=== PATIENT | female | born 1935 | race Caucasian/White ===

== ENCOUNTER → 2017-09-11 | Outpatient (CLI) | payer OTHER ==
[~2017-09-11] MED LIST: FLEXERIL10 MG PO; METFORMIN; METFORMIN500 MG PO; QUINAPRIL; QUINAPRIL40 MG PO; SYNTHROID25 MCG PO; THYROID PILL; TRAMADOL HCL50 MG PO; ULTRAM50 MG PO
[2017-09-11 07:40] LABS: BASO % 0.2 % (0.0-1.0); EOS # 0.2 10*3/uL (0.0-0.4); EOS % 4.2 % (1.0-4.0); HEMATOCRIT 36.8 % (37.0-47.0); HEMOGLOBIN 11.6 g/dl (12.0-16.0); MEAN CORPUSCULAR HGB CONC 31.5 g/dl (33.0-37.0); MEAN PLATELET VOLUME 10.8 fl (9.6-12.3); MONO # 0.5 10*3/uL (0.1-1.0); MONO % 9.1 % (3.0-9.0); NEUT # 2.5 10*3/uL (2.3-7.9); NEUT % 48.3 % (47.0-73.0); PLATELET COUNT AUTOMATED 202 10*3/uL (130-400); RED CELL DISTRI WIDTH 14.5 % (0-14.5); WHITE BLOOD COUNT 5.3 10*3/uL (4.8-10.8)
[2017-09-11 08:05] LABS: ALBUMIN 3.8 gm/dl (3.1-4.5); ALKALINE PHOSPHATASE 88 U/L (45-117); BUN 17 mg/dl (7-24); CHLORIDE 104 mmol/L (98-107); CHOLESTEROL 190 mg/dL (<200); CREATININE 0.88 mg/dL (0.55-1.02); FREE T4 1.18 ng/dl (0.76-1.46); HDL CHOLESTEROL 46 mg/dl (40-60); LDL CHOLESTEROL 125 mg/dL (9-159); POTASSIUM 3.9 mmol/L (3.5-5.1); SGOT/AST 27 IU/L (3-35); SGPT/ALT 25 U/L (12-78); SODIUM 141 mmol/L (136-145); TOTAL PROTEIN 7.4 gm/dL (6.4-8.2); TRIGLYCERIDES 93 mg/dl (<150); VLDL CHOLESTEROL 19 mg/dL (6-40)
== END | disposition home or self-care (01) ==
LOC: LAB 07:13
PROVIDERS: Internal Medicine
DX: E78.00 Pure hypercholesterolemia, unspecified (principal); E03.9 Hypothyroidism, unspecified; E11.42 Type 2 diabetes mellitus with diabetic polyneuropathy

== ENCOUNTER → 2019-04-25 | Outpatient (CLI) | payer OTHER ==
[2019-04-25 11:02] LABS: HEMATOCRIT 38.6 % (37.0-47.0); HEMOGLOBIN 12.3 g/dl (12.0-16.0); MEAN CELL VOLUME 94.1 fl (81.0-99.0); MEAN CORPUSCULAR HGB CONC 31.9 g/dl (33.0-37.0); MEAN PLATELET VOLUME 10.5 fl (9.6-12.3); RED BLOOD COUNT 4.1 10*6/uL (4.10-5.10); RED CELL DISTRI WIDTH 13.8 % (0-14.5)
[2019-04-25 11:35] LABS: ALBUMIN 3.8 gm/dl (3.1-4.5); ALKALINE PHOSPHATASE 67 U/L (45-117); BUN 13 mg/dl (7-24); CHLORIDE 105 mmol/L (98-107); CHOLESTEROL 145 mg/dL (<200); CREATININE 0.94 mg/dL (0.55-1.02); HDL CHOLESTEROL 58 mg/dl (40-60); LDL CHOLESTEROL 67 mg/dL (9-159); POTASSIUM 4.5 mmol/L (3.5-5.1); SGOT/AST 20 IU/L (3-35); SGPT/ALT 16 U/L (12-78); SODIUM 140 mmol/L (136-145); TRIGLYCERIDES 99 mg/dl (<150); VLDL CHOLESTEROL 20 mg/dL (6-40)
== END | disposition home or self-care (01) ==
LOC: LAB 10:31
PROVIDERS: Internal Medicine
DX: E11.42 Type 2 diabetes mellitus with diabetic polyneuropathy (principal); E55.9 Vitamin D deficiency, unspecified; I10 Essential (primary) hypertension; E78.00 Pure hypercholesterolemia, unspecified; E03.9 Hypothyroidism, unspecified

== ENCOUNTER → 2020-07-06 | Outpatient (CLI) | payer OTHER | END | disposition home or self-care (01) | LOC: US 14:00 | PROVIDERS: ATTEND Physician Assistant | DX: R22.1 Localized swelling, mass and lump, neck (principal); J90 Pleural effusion, not elsewhere classified; J98.11 Atelectasis ==

== ENCOUNTER → 2020-07-23 | Outpatient (CLI) | payer OTHER ==
[2020-07-23 10:06] LABS: CREATININE 0.88 mg/dL (0.55-1.02)
== END | disposition home or self-care (01) ==
LOC: LAB 09:38 → CT 10:00
PROVIDERS: Radiology Diagnostic Radiology; ATTEND Physician Assistant
DX: J98.11 Atelectasis (principal); C78.02 Secondary malignant neoplasm of left lung; C78.01 Secondary malignant neoplasm of right lung; K44.9 Diaphragmatic hernia without obstruction or gangrene; I25.10 Atherosclerotic heart disease of native coronary artery without angina pectoris; R59.9 Enlarged lymph nodes, unspecified; J90 Pleural effusion, not elsewhere classified; R91.8 Other nonspecific abnormal finding of lung field; Z90.49 Acquired absence of other specified parts of digestive tract

== ENCOUNTER → 2020-09-24 | Outpatient (CLI) | payer OTHER | END | disposition home or self-care (01) | LOC: MAMMO 07:37 | PROVIDERS: ATTEND Internal Medicine Hematology & Oncology | DX: C50.212 Malignant neoplasm of upper-inner quadrant of left female breast (principal); Z98.890 Other specified postprocedural states ==

== ENCOUNTER → 2022-02-01 | Outpatient (CLI) | payer OTHER ==
[~2022-02-01] MED LIST changes: +ANASTROZOLE1 M1 PO; +AUGMENTIN 500500 M1 PO; +IBRANCE75 MG PO; +LEVOFLOXACIN750 M2 PO
== END | disposition home or self-care (01) ==
LOC: WOUNDCARE 01:55
PROVIDERS: ATTEND Surgery
DX: S81.801A Unspecified open wound, right lower leg, initial encounter (principal); E11.622 Type 2 diabetes mellitus with other skin ulcer; I87.311 Chronic venous hypertension (idiopathic) with ulcer of right lower extremity; L97.812 Non-pressure chronic ulcer of other part of right lower leg with fat layer exposed; E03.9 Hypothyroidism, unspecified; I10 Essential (primary) hypertension; Z98.42 Cataract extraction status, left eye; Z85.3 Personal history of malignant neoplasm of breast; Z79.84 Long term (current) use of oral hypoglycemic drugs; X58.XXXA Exposure to other specified factors, initial encounter; Y93.89 Activity, other specified; Y92.89 Other specified places as the place of occurrence of the external cause; Y99.8 Other external cause status

== ENCOUNTER → 2022-02-08 | Outpatient (CLI) | payer OTHER | END | disposition home or self-care (01) | LOC: WOUNDCARE 03:01 | PROVIDERS: ATTEND Surgery | DX: S81.801D Unspecified open wound, right lower leg, subsequent encounter (principal); I83.212 Varicose veins of right lower extremity with both ulcer of calf and inflammation; L97.213 Non-pressure chronic ulcer of right calf with necrosis of muscle; E03.9 Hypothyroidism, unspecified; I10 Essential (primary) hypertension; Z98.42 Cataract extraction status, left eye; Z85.3 Personal history of malignant neoplasm of breast; X58.XXXD Exposure to other specified factors, subsequent encounter ==

== ENCOUNTER → 2022-02-15 | Outpatient (CLI) | payer OTHER | END | disposition home or self-care (01) | LOC: WOUNDCARE 01:06 | PROVIDERS: ATTEND Surgery | DX: I83.212 Varicose veins of right lower extremity with both ulcer of calf and inflammation (principal); E11.622 Type 2 diabetes mellitus with other skin ulcer; L97.213 Non-pressure chronic ulcer of right calf with necrosis of muscle; S81.801D Unspecified open wound, right lower leg, subsequent encounter; E03.9 Hypothyroidism, unspecified; Z98.42 Cataract extraction status, left eye; Z85.3 Personal history of malignant neoplasm of breast; X58.XXXD Exposure to other specified factors, subsequent encounter ==

== ENCOUNTER → 2022-02-22 | Outpatient (CLI) | payer OTHER | END | disposition home or self-care (01) | LOC: WOUNDCARE 03:57 | PROVIDERS: ATTEND Surgery | DX: S81.801D Unspecified open wound, right lower leg, subsequent encounter (principal); E11.622 Type 2 diabetes mellitus with other skin ulcer; L97.812 Non-pressure chronic ulcer of other part of right lower leg with fat layer exposed; I83.212 Varicose veins of right lower extremity with both ulcer of calf and inflammation; L97.213 Non-pressure chronic ulcer of right calf with necrosis of muscle; E03.9 Hypothyroidism, unspecified; Z98.42 Cataract extraction status, left eye; Z85.3 Personal history of malignant neoplasm of breast; X58.XXXD Exposure to other specified factors, subsequent encounter ==

== ENCOUNTER → 2022-03-01 | Outpatient (CLI) | payer OTHER | END | disposition home or self-care (01) | LOC: WOUNDCARE 00:42 | PROVIDERS: ATTEND Nurse Practitioner Family | DX: S81.801D Unspecified open wound, right lower leg, subsequent encounter (principal); E11.622 Type 2 diabetes mellitus with other skin ulcer; I83.212 Varicose veins of right lower extremity with both ulcer of calf and inflammation; L97.213 Non-pressure chronic ulcer of right calf with necrosis of muscle; E03.9 Hypothyroidism, unspecified; Z98.42 Cataract extraction status, left eye; Z85.3 Personal history of malignant neoplasm of breast; X58.XXXD Exposure to other specified factors, subsequent encounter ==

== ENCOUNTER → 2022-03-11 | Day surgery (SDC) | payer OTHER ==
[~2022-03-11] VITALS: Ht 167.6 cm; Wt 68.0 kg
[~2022-03-11] MED LIST changes: +FERROUS GLUCON324 MG PO; +NATURAL LUTEIN20 MG PO; +PERCOCET 5-3251 EACH PO
[2022-03-11 09:50] VITALS: BP 126/72
[2022-03-11 11:45] VITALS: BP 153/83
[2022-03-11 12:00] VITALS: BP 158/83
[2022-03-11 12:15] VITALS: BP 158/88
== END | disposition home or self-care (01) ==
LOC: SDC 03-08 11:00
PROVIDERS: ATTEND Surgery
DX: S81.801A Unspecified open wound, right lower leg, initial encounter (principal); I87.2 Venous insufficiency (chronic) (peripheral); I87.311 Chronic venous hypertension (idiopathic) with ulcer of right lower extremity; L97.312 Non-pressure chronic ulcer of right ankle with fat layer exposed; X58.XXXA Exposure to other specified factors, initial encounter; Y93.89 Activity, other specified; Y92.89 Other specified places as the place of occurrence of the external cause; Y99.8 Other external cause status

== ENCOUNTER → 2022-03-17 | Outpatient (CLI) | payer MEDICARE | END | disposition home or self-care (01) | LOC: WOUNDCARE 01:54 | PROVIDERS: ATTEND Nurse Practitioner Family | DX: S81.801D Unspecified open wound, right lower leg, subsequent encounter (principal); E11.622 Type 2 diabetes mellitus with other skin ulcer; I83.212 Varicose veins of right lower extremity with both ulcer of calf and inflammation; L97.213 Non-pressure chronic ulcer of right calf with necrosis of muscle; E03.9 Hypothyroidism, unspecified; I10 Essential (primary) hypertension; Z98.42 Cataract extraction status, left eye; Z85.3 Personal history of malignant neoplasm of breast; X58.XXXD Exposure to other specified factors, subsequent encounter ==

== ENCOUNTER → 2022-03-24 | Outpatient (CLI) | payer MEDICARE | END | disposition home or self-care (01) | LOC: WOUNDCARE 02:20 | PROVIDERS: ATTEND Nurse Practitioner Family | DX: S81.801D Unspecified open wound, right lower leg, subsequent encounter (principal); I83.212 Varicose veins of right lower extremity with both ulcer of calf and inflammation; E11.622 Type 2 diabetes mellitus with other skin ulcer; L97.213 Non-pressure chronic ulcer of right calf with necrosis of muscle; E03.9 Hypothyroidism, unspecified; I10 Essential (primary) hypertension; Z98.42 Cataract extraction status, left eye; Z85.3 Personal history of malignant neoplasm of breast; X58.XXXD Exposure to other specified factors, subsequent encounter ==

== ENCOUNTER → 2022-03-31 | Outpatient (CLI) | payer MEDICARE | LOC: WOUNDCARE 00:24 | PROVIDERS: ATTEND Nurse Practitioner Family | DX: S81.801D Unspecified open wound, right lower leg, subsequent encounter (principal); E11.622 Type 2 diabetes mellitus with other skin ulcer; I83.212 Varicose veins of right lower extremity with both ulcer of calf and inflammation; L97.213 Non-pressure chronic ulcer of right calf with necrosis of muscle; E03.9 Hypothyroidism, unspecified; I10 Essential (primary) hypertension; Z98.42 Cataract extraction status, left eye; Z85.3 Personal history of malignant neoplasm of breast; X58.XXXD Exposure to other specified factors, subsequent encounter ==

== ENCOUNTER → 2022-04-06 | Outpatient (CLI) | payer MEDICARE | END | disposition home or self-care (01) | LOC: WOUNDCARE 01:05 | PROVIDERS: ATTEND Nurse Practitioner Family | DX: I83.212 Varicose veins of right lower extremity with both ulcer of calf and inflammation (principal); E11.622 Type 2 diabetes mellitus with other skin ulcer; L97.213 Non-pressure chronic ulcer of right calf with necrosis of muscle; S81.801D Unspecified open wound, right lower leg, subsequent encounter; E03.9 Hypothyroidism, unspecified; I10 Essential (primary) hypertension; Z98.42 Cataract extraction status, left eye; Z85.3 Personal history of malignant neoplasm of breast; X58.XXXD Exposure to other specified factors, subsequent encounter ==

== ENCOUNTER → 2022-04-12 | Outpatient (CLI) | payer MEDICARE | END | disposition home or self-care (01) | LOC: WOUNDCARE 03:33 | PROVIDERS: ATTEND Nurse Practitioner Family | DX: I83.212 Varicose veins of right lower extremity with both ulcer of calf and inflammation (principal); L97.213 Non-pressure chronic ulcer of right calf with necrosis of muscle; S81.801D Unspecified open wound, right lower leg, subsequent encounter; E03.9 Hypothyroidism, unspecified; Z98.42 Cataract extraction status, left eye; Z85.3 Personal history of malignant neoplasm of breast; X58.XXXD Exposure to other specified factors, subsequent encounter ==

== ENCOUNTER → 2022-04-28 | Outpatient (CLI) | payer MEDICARE | END | disposition home or self-care (01) | LOC: WOUNDCARE 00:27 | PROVIDERS: ATTEND Nurse Practitioner Family | DX: S81.801D Unspecified open wound, right lower leg, subsequent encounter (principal); I83.212 Varicose veins of right lower extremity with both ulcer of calf and inflammation; L97.213 Non-pressure chronic ulcer of right calf with necrosis of muscle; C50.212 Malignant neoplasm of upper-inner quadrant of left female breast; D50.9 Iron deficiency anemia, unspecified; I10 Essential (primary) hypertension; E03.9 Hypothyroidism, unspecified; E11.9 Type 2 diabetes mellitus without complications; Z98.42 Cataract extraction status, left eye ==

== ENCOUNTER → 2022-05-05 | Outpatient (CLI) | payer MEDICARE | END | disposition home or self-care (01) | LOC: WOUNDCARE 00:58 | PROVIDERS: ATTEND Nurse Practitioner Family | DX: S81.801D Unspecified open wound, right lower leg, subsequent encounter (principal); E11.622 Type 2 diabetes mellitus with other skin ulcer; I83.212 Varicose veins of right lower extremity with both ulcer of calf and inflammation; L97.213 Non-pressure chronic ulcer of right calf with necrosis of muscle; E03.9 Hypothyroidism, unspecified; I10 Essential (primary) hypertension; Z85.3 Personal history of malignant neoplasm of breast; Z98.42 Cataract extraction status, left eye; X58.XXXD Exposure to other specified factors, subsequent encounter ==

== ENCOUNTER → 2022-05-10 | Outpatient (CLI) | payer MEDICARE | END | disposition home or self-care (01) | LOC: WOUNDCARE 01:55 | PROVIDERS: ATTEND Nurse Practitioner Family | DX: S81.801D Unspecified open wound, right lower leg, subsequent encounter (principal); E11.622 Type 2 diabetes mellitus with other skin ulcer; I83.212 Varicose veins of right lower extremity with both ulcer of calf and inflammation; L97.213 Non-pressure chronic ulcer of right calf with necrosis of muscle; E03.9 Hypothyroidism, unspecified; I10 Essential (primary) hypertension; Z98.42 Cataract extraction status, left eye; Z85.3 Personal history of malignant neoplasm of breast; X58.XXXD Exposure to other specified factors, subsequent encounter ==

== ENCOUNTER → 2022-05-24 | Outpatient (CLI) | payer MEDICARE | END | disposition home or self-care (01) | LOC: WOUNDCARE 03:31 | PROVIDERS: ATTEND Nurse Practitioner Family | DX: S81.801D Unspecified open wound, right lower leg, subsequent encounter (principal); E11.622 Type 2 diabetes mellitus with other skin ulcer; I83.212 Varicose veins of right lower extremity with both ulcer of calf and inflammation; L97.213 Non-pressure chronic ulcer of right calf with necrosis of muscle; E03.9 Hypothyroidism, unspecified; I10 Essential (primary) hypertension; Z98.42 Cataract extraction status, left eye; Z85.3 Personal history of malignant neoplasm of breast; X58.XXXD Exposure to other specified factors, subsequent encounter ==

== ENCOUNTER → 2022-06-01 | Outpatient (CLI) | payer MEDICARE ==
[2022-06-01 10:56] LABS: BASO % 0.7 % (0.0-1.0); EOS # 0.2 10*3/uL (0.0-0.4); EOS % 5.2 % (1.0-4.0); HEMATOCRIT 33.3 % (37.0-47.0); LYMPH # 1.3 10*3/uL (1.3-4.4); LYMPH % 31.5 % (27.0-41.0); MEAN CELL VOLUME 104.4 fl (81.0-99.0); MEAN CORPUSCULAR HGB 34.8 pg (27.0-31.0); MEAN CORPUSCULAR HGB CONC 33.3 g/dl (33.0-37.0); MEAN PLATELET VOLUME 9.7 fl (9.6-12.3); MONO # 0.3 10*3/uL (0.1-1.0); MONO % 7.7 % (3.0-9.0); NEUT # 2.2 10*3/uL (2.3-7.9); NEUT % 54.4 % (47.0-73.0); PLATELET COUNT AUTOMATED 348 10*3/uL (130-400); RED BLOOD COUNT 3.19 10*6/uL (4.10-5.10); RED CELL DISTRI WIDTH 13.7 % (0-14.5)
[2022-06-01 11:12] LABS: ALKALINE PHOSPHATASE 92 U/L (46-116); BUN 14 mg/dl (9-23); CHLORIDE 106 mmol/L (98-107); CREATININE 0.89 mg/dL (0.55-1.02); POTASSIUM 4.1 mmol/L (3.4-5.1); SODIUM 140 mmol/L (136-145); TOTAL PROTEIN 7.5 gm/dL (6.0-8.0)
[2022-06-01 11:43] LABS: SGPT/ALT 13 U/L (12-78)
== END | disposition home or self-care (01) ==
LOC: WOUNDCARE 02:53 → LAB 02:53 → WOUNDCARE 08:03
PROVIDERS: ATTEND Nurse Practitioner Family
DX: S81.801D Unspecified open wound, right lower leg, subsequent encounter (principal); E11.622 Type 2 diabetes mellitus with other skin ulcer; I83.212 Varicose veins of right lower extremity with both ulcer of calf and inflammation; L97.213 Non-pressure chronic ulcer of right calf with necrosis of muscle; E03.9 Hypothyroidism, unspecified; I10 Essential (primary) hypertension; Z98.42 Cataract extraction status, left eye; Z85.3 Personal history of malignant neoplasm of breast; X58.XXXD Exposure to other specified factors, subsequent encounter

== ENCOUNTER → 2022-06-08 | Outpatient (CLI) | payer MEDICARE | END | disposition home or self-care (01) | LOC: WOUNDCARE 03:20 | PROVIDERS: ATTEND Nurse Practitioner Family | DX: S81.801D Unspecified open wound, right lower leg, subsequent encounter (principal); I83.213 Varicose veins of right lower extremity with both ulcer of ankle and inflammation; L97.213 Non-pressure chronic ulcer of right calf with necrosis of muscle; I10 Essential (primary) hypertension; E03.9 Hypothyroidism, unspecified; Z98.42 Cataract extraction status, left eye; Z85.3 Personal history of malignant neoplasm of breast; X58.XXXD Exposure to other specified factors, subsequent encounter ==

== ENCOUNTER → 2022-06-15 | Outpatient (CLI) | payer MEDICARE | END | disposition home or self-care (01) | LOC: WOUNDCARE 04:22 | PROVIDERS: ATTEND Nurse Practitioner Family | DX: S81.801D Unspecified open wound, right lower leg, subsequent encounter (principal); E11.622 Type 2 diabetes mellitus with other skin ulcer; I83.212 Varicose veins of right lower extremity with both ulcer of calf and inflammation; L97.213 Non-pressure chronic ulcer of right calf with necrosis of muscle; E03.9 Hypothyroidism, unspecified; I10 Essential (primary) hypertension; Z98.42 Cataract extraction status, left eye; Z85.3 Personal history of malignant neoplasm of breast; X58.XXXD Exposure to other specified factors, subsequent encounter ==

== ENCOUNTER → 2022-06-22 | Outpatient (CLI) | payer MEDICARE ==
[~2022-06-22] MED LIST changes: +METFORMIN HYDR500 MG PO; +SEPTDS PO
== END ==
LOC: WOUNDCARE 04:43
PROVIDERS: ATTEND Nurse Practitioner Family
DX: I83.212 Varicose veins of right lower extremity with both ulcer of calf and inflammation (principal); E11.622 Type 2 diabetes mellitus with other skin ulcer; L97.213 Non-pressure chronic ulcer of right calf with necrosis of muscle; S81.801D Unspecified open wound, right lower leg, subsequent encounter; I10 Essential (primary) hypertension; E03.9 Hypothyroidism, unspecified; Z98.42 Cataract extraction status, left eye; Z85.3 Personal history of malignant neoplasm of breast; X58.XXXD Exposure to other specified factors, subsequent encounter

== ENCOUNTER → 2022-06-29 | Outpatient (CLI) | payer MEDICARE | END | disposition home or self-care (01) | LOC: WOUNDCARE 02:55 | PROVIDERS: ATTEND Nurse Practitioner Family | DX: I83.212 Varicose veins of right lower extremity with both ulcer of calf and inflammation (principal); E11.622 Type 2 diabetes mellitus with other skin ulcer; L97.213 Non-pressure chronic ulcer of right calf with necrosis of muscle; S81.801D Unspecified open wound, right lower leg, subsequent encounter; E03.9 Hypothyroidism, unspecified; I10 Essential (primary) hypertension; Z98.42 Cataract extraction status, left eye; Z85.3 Personal history of malignant neoplasm of breast; X58.XXXD Exposure to other specified factors, subsequent encounter ==

== ENCOUNTER → 2022-07-08 | Outpatient (CLI) | payer MEDICARE ==
[~2022-07-08] MED LIST changes: +METRONIDAZOLE500 M1 PO; +OYSTER SHELL 51 EAC4 PO; +VITAMIN B-12100 MCG PO
== END | disposition home or self-care (01) ==
LOC: WOUNDCARE 02:46
PROVIDERS: ATTEND Nurse Practitioner Family
DX: S81.801D Unspecified open wound, right lower leg, subsequent encounter (principal); E11.622 Type 2 diabetes mellitus with other skin ulcer; I83.212 Varicose veins of right lower extremity with both ulcer of calf and inflammation; L97.213 Non-pressure chronic ulcer of right calf with necrosis of muscle; E03.9 Hypothyroidism, unspecified; I10 Essential (primary) hypertension; Z98.42 Cataract extraction status, left eye; Z85.3 Personal history of malignant neoplasm of breast; X58.XXXD Exposure to other specified factors, subsequent encounter

== ENCOUNTER → 2022-07-29 | Outpatient (CLI) | payer MEDICARE | END | disposition home or self-care (01) | LOC: WOUNDCARE 00:26 | PROVIDERS: ATTEND Surgery Vascular Surgery | DX: S81.801D Unspecified open wound, right lower leg, subsequent encounter (principal); E11.622 Type 2 diabetes mellitus with other skin ulcer; I83.212 Varicose veins of right lower extremity with both ulcer of calf and inflammation; L97.213 Non-pressure chronic ulcer of right calf with necrosis of muscle; E03.9 Hypothyroidism, unspecified; Z98.42 Cataract extraction status, left eye; Z85.3 Personal history of malignant neoplasm of breast; X58.XXXD Exposure to other specified factors, subsequent encounter ==

== ENCOUNTER → 2022-08-05 | Outpatient (CLI) | payer MEDICARE | END | disposition home or self-care (01) | LOC: WOUNDCARE 00:09 | PROVIDERS: ATTEND Surgery Vascular Surgery | DX: S81.801D Unspecified open wound, right lower leg, subsequent encounter (principal); E11.622 Type 2 diabetes mellitus with other skin ulcer; I83.212 Varicose veins of right lower extremity with both ulcer of calf and inflammation; L97.213 Non-pressure chronic ulcer of right calf with necrosis of muscle; E03.9 Hypothyroidism, unspecified; I10 Essential (primary) hypertension; Z98.42 Cataract extraction status, left eye; Z85.3 Personal history of malignant neoplasm of breast; X58.XXXD Exposure to other specified factors, subsequent encounter ==

== ENCOUNTER → 2022-08-26 | Outpatient (CLI) | payer MEDICARE | END | disposition home or self-care (01) | LOC: WOUNDCARE 01:00 | PROVIDERS: ATTEND Surgery Vascular Surgery | DX: S81.801D Unspecified open wound, right lower leg, subsequent encounter (principal); E11.622 Type 2 diabetes mellitus with other skin ulcer; I83.212 Varicose veins of right lower extremity with both ulcer of calf and inflammation; L97.213 Non-pressure chronic ulcer of right calf with necrosis of muscle; E03.9 Hypothyroidism, unspecified; I10 Essential (primary) hypertension; Z98.42 Cataract extraction status, left eye; Z85.3 Personal history of malignant neoplasm of breast; X58.XXXD Exposure to other specified factors, subsequent encounter ==

== ENCOUNTER → 2022-09-02 | Outpatient (CLI) | payer MEDICARE | END | disposition home or self-care (01) | LOC: WOUNDCARE 00:31 | PROVIDERS: ATTEND Surgery Vascular Surgery | DX: S81.801D Unspecified open wound, right lower leg, subsequent encounter (principal); E11.622 Type 2 diabetes mellitus with other skin ulcer; I83.212 Varicose veins of right lower extremity with both ulcer of calf and inflammation; L97.213 Non-pressure chronic ulcer of right calf with necrosis of muscle; E03.9 Hypothyroidism, unspecified; I10 Essential (primary) hypertension; Z85.3 Personal history of malignant neoplasm of breast; Z98.42 Cataract extraction status, left eye; X58.XXXD Exposure to other specified factors, subsequent encounter ==

== ENCOUNTER → 2022-09-06 | Outpatient (CLI) | payer MEDICARE | END | disposition home or self-care (01) | LOC: WOUNDCARE 01:25 | PROVIDERS: ATTEND Nurse Practitioner Family | DX: S81.801D Unspecified open wound, right lower leg, subsequent encounter (principal); E11.622 Type 2 diabetes mellitus with other skin ulcer; I83.212 Varicose veins of right lower extremity with both ulcer of calf and inflammation; L97.213 Non-pressure chronic ulcer of right calf with necrosis of muscle; E03.9 Hypothyroidism, unspecified; I10 Essential (primary) hypertension; Z98.42 Cataract extraction status, left eye; Z85.3 Personal history of malignant neoplasm of breast; X58.XXXD Exposure to other specified factors, subsequent encounter ==

== ENCOUNTER → 2022-09-13 | Outpatient (CLI) | payer MEDICARE | END | disposition home or self-care (01) | LOC: WOUNDCARE 01:25 | PROVIDERS: ATTEND Nurse Practitioner Family | DX: S81.801D Unspecified open wound, right lower leg, subsequent encounter (principal); E11.622 Type 2 diabetes mellitus with other skin ulcer; I83.212 Varicose veins of right lower extremity with both ulcer of calf and inflammation; L97.213 Non-pressure chronic ulcer of right calf with necrosis of muscle; E03.9 Hypothyroidism, unspecified; I10 Essential (primary) hypertension; Z98.42 Cataract extraction status, left eye; Z85.3 Personal history of malignant neoplasm of breast; X58.XXXD Exposure to other specified factors, subsequent encounter ==

== ENCOUNTER → 2022-09-20 | Outpatient (CLI) | payer MEDICARE | END | disposition home or self-care (01) | LOC: WOUNDCARE 01:26 | PROVIDERS: ATTEND Nurse Practitioner Family | DX: I83.212 Varicose veins of right lower extremity with both ulcer of calf and inflammation (principal); E11.622 Type 2 diabetes mellitus with other skin ulcer; L97.213 Non-pressure chronic ulcer of right calf with necrosis of muscle; S81.801D Unspecified open wound, right lower leg, subsequent encounter; E03.9 Hypothyroidism, unspecified; I10 Essential (primary) hypertension; Z98.42 Cataract extraction status, left eye; Z85.3 Personal history of malignant neoplasm of breast; X58.XXXD Exposure to other specified factors, subsequent encounter ==

== ENCOUNTER → 2022-09-27 | Outpatient (CLI) | payer MEDICARE | END | disposition home or self-care (01) | LOC: WOUNDCARE 02:08 | PROVIDERS: ATTEND Nurse Practitioner Family | DX: S81.801D Unspecified open wound, right lower leg, subsequent encounter (principal); E11.622 Type 2 diabetes mellitus with other skin ulcer; I83.212 Varicose veins of right lower extremity with both ulcer of calf and inflammation; L97.213 Non-pressure chronic ulcer of right calf with necrosis of muscle; E03.9 Hypothyroidism, unspecified; I10 Essential (primary) hypertension; Z98.42 Cataract extraction status, left eye; Z85.3 Personal history of malignant neoplasm of breast; X58.XXXD Exposure to other specified factors, subsequent encounter ==

== ENCOUNTER → 2022-10-11 | Outpatient (CLI) | payer MEDICARE | END | disposition home or self-care (01) | LOC: WOUNDCARE 10-04 01:38 | PROVIDERS: ATTEND Nurse Practitioner Family | DX: I83.212 Varicose veins of right lower extremity with both ulcer of calf and inflammation (principal); E11.622 Type 2 diabetes mellitus with other skin ulcer; L97.213 Non-pressure chronic ulcer of right calf with necrosis of muscle; S81.801D Unspecified open wound, right lower leg, subsequent encounter; E03.9 Hypothyroidism, unspecified; I10 Essential (primary) hypertension; Z98.42 Cataract extraction status, left eye; Z85.3 Personal history of malignant neoplasm of breast; X58.XXXD Exposure to other specified factors, subsequent encounter ==

== ENCOUNTER → 2022-10-18 | Outpatient (CLI) | payer MEDICARE | END | disposition home or self-care (01) | LOC: WOUNDCARE 01:36 | PROVIDERS: ATTEND Nurse Practitioner Family | DX: S81.801D Unspecified open wound, right lower leg, subsequent encounter (principal); E11.622 Type 2 diabetes mellitus with other skin ulcer; I83.212 Varicose veins of right lower extremity with both ulcer of calf and inflammation; L97.213 Non-pressure chronic ulcer of right calf with necrosis of muscle; E03.9 Hypothyroidism, unspecified; I10 Essential (primary) hypertension; Z98.42 Cataract extraction status, left eye; Z85.3 Personal history of malignant neoplasm of breast; X58.XXXD Exposure to other specified factors, subsequent encounter ==

== ENCOUNTER → 2022-10-25 | Outpatient (CLI) | payer MEDICARE | END | disposition home or self-care (01) | LOC: WOUNDCARE 00:47 | PROVIDERS: ATTEND Nurse Practitioner Family | DX: S81.801D Unspecified open wound, right lower leg, subsequent encounter (principal); E11.622 Type 2 diabetes mellitus with other skin ulcer; I83.212 Varicose veins of right lower extremity with both ulcer of calf and inflammation; L97.213 Non-pressure chronic ulcer of right calf with necrosis of muscle; E03.9 Hypothyroidism, unspecified; I10 Essential (primary) hypertension; Z98.42 Cataract extraction status, left eye; Z85.3 Personal history of malignant neoplasm of breast; X58.XXXD Exposure to other specified factors, subsequent encounter ==

== ENCOUNTER → 2022-11-01 | Outpatient (CLI) | payer MEDICARE | END | disposition home or self-care (01) | LOC: WOUNDCARE 00:45 | PROVIDERS: ATTEND Nurse Practitioner Family | DX: S81.801D Unspecified open wound, right lower leg, subsequent encounter (principal); E11.622 Type 2 diabetes mellitus with other skin ulcer; I83.212 Varicose veins of right lower extremity with both ulcer of calf and inflammation; L97.213 Non-pressure chronic ulcer of right calf with necrosis of muscle; E03.9 Hypothyroidism, unspecified; I10 Essential (primary) hypertension; Z98.42 Cataract extraction status, left eye; Z85.3 Personal history of malignant neoplasm of breast; X58.XXXD Exposure to other specified factors, subsequent encounter ==

== ENCOUNTER → 2022-11-08 | Outpatient (CLI) | payer MEDICARE | END | disposition home or self-care (01) | LOC: WOUNDCARE 01:51 | PROVIDERS: ATTEND Nurse Practitioner Family | DX: I83.212 Varicose veins of right lower extremity with both ulcer of calf and inflammation (principal); E11.622 Type 2 diabetes mellitus with other skin ulcer; L97.213 Non-pressure chronic ulcer of right calf with necrosis of muscle; S81.801D Unspecified open wound, right lower leg, subsequent encounter; E03.9 Hypothyroidism, unspecified; I10 Essential (primary) hypertension; Z98.49 Cataract extraction status, unspecified eye; Z85.3 Personal history of malignant neoplasm of breast; X58.XXXD Exposure to other specified factors, subsequent encounter ==

== ENCOUNTER → 2022-11-15 | Outpatient (CLI) | payer MEDICARE | END | disposition home or self-care (01) | LOC: WOUNDCARE 00:40 | PROVIDERS: ATTEND Nurse Practitioner Family | DX: S81.801D Unspecified open wound, right lower leg, subsequent encounter (principal); E11.622 Type 2 diabetes mellitus with other skin ulcer; I83.212 Varicose veins of right lower extremity with both ulcer of calf and inflammation; L97.213 Non-pressure chronic ulcer of right calf with necrosis of muscle; E03.9 Hypothyroidism, unspecified; I10 Essential (primary) hypertension; Z98.42 Cataract extraction status, left eye; Z85.3 Personal history of malignant neoplasm of breast; X58.XXXD Exposure to other specified factors, subsequent encounter ==

== ENCOUNTER → 2022-11-22 | Outpatient (CLI) | payer MEDICARE | END | disposition home or self-care (01) | LOC: WOUNDCARE 02:14 | PROVIDERS: ATTEND Nurse Practitioner Family | DX: S81.801D Unspecified open wound, right lower leg, subsequent encounter (principal); E11.622 Type 2 diabetes mellitus with other skin ulcer; I83.212 Varicose veins of right lower extremity with both ulcer of calf and inflammation; L97.213 Non-pressure chronic ulcer of right calf with necrosis of muscle; E03.9 Hypothyroidism, unspecified; I10 Essential (primary) hypertension; Z98.42 Cataract extraction status, left eye; Z85.3 Personal history of malignant neoplasm of breast; X58.XXXD Exposure to other specified factors, subsequent encounter ==

== ENCOUNTER → 2022-11-30 | Outpatient (CLI) | payer MEDICARE | END | disposition home or self-care (01) | LOC: WOUNDCARE 03:11 | PROVIDERS: ATTEND Nurse Practitioner Family | DX: S81.801D Unspecified open wound, right lower leg, subsequent encounter (principal); E11.622 Type 2 diabetes mellitus with other skin ulcer; I83.212 Varicose veins of right lower extremity with both ulcer of calf and inflammation; L97.213 Non-pressure chronic ulcer of right calf with necrosis of muscle; E03.9 Hypothyroidism, unspecified; I10 Essential (primary) hypertension; Z98.42 Cataract extraction status, left eye; Z85.3 Personal history of malignant neoplasm of breast; X58.XXXD Exposure to other specified factors, subsequent encounter ==

== ENCOUNTER → 2022-12-07 | Outpatient (CLI) | payer MEDICARE | LOC: WOUNDCARE 01:42 | PROVIDERS: ATTEND Nurse Practitioner Family | DX: S81.801D Unspecified open wound, right lower leg, subsequent encounter (principal); E11.622 Type 2 diabetes mellitus with other skin ulcer; I83.212 Varicose veins of right lower extremity with both ulcer of calf and inflammation; L97.213 Non-pressure chronic ulcer of right calf with necrosis of muscle; E03.9 Hypothyroidism, unspecified; I10 Essential (primary) hypertension; Z98.42 Cataract extraction status, left eye; Z85.3 Personal history of malignant neoplasm of breast; X58.XXXD Exposure to other specified factors, subsequent encounter ==

== ENCOUNTER → 2022-12-13 | Outpatient (CLI) | payer MEDICARE | END | disposition home or self-care (01) | LOC: WOUNDCARE 01:08 | PROVIDERS: ATTEND Nurse Practitioner Primary Care | DX: S81.801D Unspecified open wound, right lower leg, subsequent encounter (principal); E11.622 Type 2 diabetes mellitus with other skin ulcer; I83.212 Varicose veins of right lower extremity with both ulcer of calf and inflammation; L97.213 Non-pressure chronic ulcer of right calf with necrosis of muscle; L03.115 Cellulitis of right lower limb; E03.9 Hypothyroidism, unspecified; I10 Essential (primary) hypertension; Z98.42 Cataract extraction status, left eye; Z85.3 Personal history of malignant neoplasm of breast; X58.XXXD Exposure to other specified factors, subsequent encounter ==

== ENCOUNTER → 2022-12-21 | Outpatient (CLI) | payer MEDICARE | END | disposition home or self-care (01) | LOC: WOUNDCARE 01:29 | PROVIDERS: ATTEND Nurse Practitioner Primary Care | DX: S81.801D Unspecified open wound, right lower leg, subsequent encounter (principal); E11.622 Type 2 diabetes mellitus with other skin ulcer; I83.212 Varicose veins of right lower extremity with both ulcer of calf and inflammation; L97.213 Non-pressure chronic ulcer of right calf with necrosis of muscle; L03.115 Cellulitis of right lower limb; E03.9 Hypothyroidism, unspecified; Z98.42 Cataract extraction status, left eye; Z85.3 Personal history of malignant neoplasm of breast; X58.XXXD Exposure to other specified factors, subsequent encounter ==

== ENCOUNTER → 2022-12-27 | Outpatient (CLI) | payer MEDICARE | END | disposition home or self-care (01) | LOC: WOUNDCARE 00:05 | PROVIDERS: ATTEND Nurse Practitioner Family | DX: S81.801D Unspecified open wound, right lower leg, subsequent encounter (principal); E11.622 Type 2 diabetes mellitus with other skin ulcer; I83.212 Varicose veins of right lower extremity with both ulcer of calf and inflammation; L97.213 Non-pressure chronic ulcer of right calf with necrosis of muscle; L03.115 Cellulitis of right lower limb; E03.9 Hypothyroidism, unspecified; I10 Essential (primary) hypertension; Z98.42 Cataract extraction status, left eye; Z85.3 Personal history of malignant neoplasm of breast; X58.XXXD Exposure to other specified factors, subsequent encounter ==

== ENCOUNTER → 2023-01-03 | Outpatient (CLI) | payer MEDICARE | LOC: WOUNDCARE 01:48 | PROVIDERS: ATTEND Nurse Practitioner Family | DX: I83.212 Varicose veins of right lower extremity with both ulcer of calf and inflammation (principal); E11.622 Type 2 diabetes mellitus with other skin ulcer; L97.213 Non-pressure chronic ulcer of right calf with necrosis of muscle; S81.801D Unspecified open wound, right lower leg, subsequent encounter; L03.115 Cellulitis of right lower limb; E03.9 Hypothyroidism, unspecified; I10 Essential (primary) hypertension; Z98.42 Cataract extraction status, left eye; Z85.3 Personal history of malignant neoplasm of breast; X58.XXXD Exposure to other specified factors, subsequent encounter ==

== ENCOUNTER → 2023-01-11 | Outpatient (CLI) | payer MEDICARE | END | disposition home or self-care (01) | LOC: WOUNDCARE 01:45 | PROVIDERS: ATTEND Nurse Practitioner Family | DX: I83.212 Varicose veins of right lower extremity with both ulcer of calf and inflammation (principal); E11.622 Type 2 diabetes mellitus with other skin ulcer; L97.213 Non-pressure chronic ulcer of right calf with necrosis of muscle; L03.115 Cellulitis of right lower limb; I10 Essential (primary) hypertension; E03.9 Hypothyroidism, unspecified; Z85.3 Personal history of malignant neoplasm of breast; Z98.42 Cataract extraction status, left eye ==

== ENCOUNTER → 2023-01-17 | Outpatient (CLI) | payer MEDICARE | END | disposition home or self-care (01) | LOC: WOUNDCARE 00:06 | PROVIDERS: ATTEND Nurse Practitioner Family | DX: S81.801D Unspecified open wound, right lower leg, subsequent encounter (principal); I83.212 Varicose veins of right lower extremity with both ulcer of calf and inflammation; L97.213 Non-pressure chronic ulcer of right calf with necrosis of muscle; L03.115 Cellulitis of right lower limb; E03.9 Hypothyroidism, unspecified; I10 Essential (primary) hypertension; Z98.42 Cataract extraction status, left eye; Z85.3 Personal history of malignant neoplasm of breast; X58.XXXD Exposure to other specified factors, subsequent encounter ==

== ENCOUNTER → 2023-01-31 | Outpatient (CLI) | payer MEDICARE | END | disposition home or self-care (01) | LOC: WOUNDCARE 00:56 | PROVIDERS: ATTEND Nurse Practitioner Family | DX: I83.212 Varicose veins of right lower extremity with both ulcer of calf and inflammation (principal); E11.622 Type 2 diabetes mellitus with other skin ulcer; L97.213 Non-pressure chronic ulcer of right calf with necrosis of muscle; L03.115 Cellulitis of right lower limb; E03.9 Hypothyroidism, unspecified; I10 Essential (primary) hypertension; Z98.42 Cataract extraction status, left eye; Z85.3 Personal history of malignant neoplasm of breast ==

== ENCOUNTER → 2023-02-07 | Outpatient (CLI) | payer MEDICARE | END | disposition home or self-care (01) | LOC: WOUNDCARE 00:42 | PROVIDERS: ATTEND Nurse Practitioner Family | DX: I83.212 Varicose veins of right lower extremity with both ulcer of calf and inflammation (principal); E11.622 Type 2 diabetes mellitus with other skin ulcer; L97.213 Non-pressure chronic ulcer of right calf with necrosis of muscle; L03.115 Cellulitis of right lower limb; E03.9 Hypothyroidism, unspecified; I10 Essential (primary) hypertension; Z98.42 Cataract extraction status, left eye; Z85.3 Personal history of malignant neoplasm of breast ==

== ENCOUNTER → 2023-02-14 | Outpatient (CLI) | payer MEDICARE | END | disposition home or self-care (01) | LOC: WOUNDCARE 00:56 | PROVIDERS: ATTEND Nurse Practitioner Family | DX: I83.213 Varicose veins of right lower extremity with both ulcer of ankle and inflammation (principal); L97.213 Non-pressure chronic ulcer of right calf with necrosis of muscle; L03.115 Cellulitis of right lower limb; E03.9 Hypothyroidism, unspecified; I10 Essential (primary) hypertension; Z98.42 Cataract extraction status, left eye; Z85.3 Personal history of malignant neoplasm of breast ==

== ENCOUNTER → 2023-02-21 | Outpatient (CLI) | payer MEDICARE | END | disposition home or self-care (01) | LOC: WOUNDCARE 00:32 | PROVIDERS: ATTEND Nurse Practitioner Family | DX: I83.212 Varicose veins of right lower extremity with both ulcer of calf and inflammation (principal); L97.213 Non-pressure chronic ulcer of right calf with necrosis of muscle; S81.801D Unspecified open wound, right lower leg, subsequent encounter; L03.115 Cellulitis of right lower limb; E03.9 Hypothyroidism, unspecified; I10 Essential (primary) hypertension; Z98.42 Cataract extraction status, left eye; Z85.3 Personal history of malignant neoplasm of breast; X58.XXXD Exposure to other specified factors, subsequent encounter ==

== ENCOUNTER → 2023-02-27 | Outpatient (CLI) | payer MEDICARE | END | disposition home or self-care (01) | LOC: WOUNDCARE 01:41 | PROVIDERS: ATTEND Nurse Practitioner Family | DX: I83.212 Varicose veins of right lower extremity with both ulcer of calf and inflammation (principal); E11.622 Type 2 diabetes mellitus with other skin ulcer; L97.213 Non-pressure chronic ulcer of right calf with necrosis of muscle; S81.801D Unspecified open wound, right lower leg, subsequent encounter; L03.115 Cellulitis of right lower limb; I10 Essential (primary) hypertension; E03.9 Hypothyroidism, unspecified; Z98.42 Cataract extraction status, left eye; Z85.3 Personal history of malignant neoplasm of breast; X58.XXXD Exposure to other specified factors, subsequent encounter ==

== ENCOUNTER → 2023-03-07 | Outpatient (CLI) | payer MEDICARE | END | disposition home or self-care (01) | LOC: WOUNDCARE 01:16 | PROVIDERS: ATTEND Nurse Practitioner Family | DX: S81.801D Unspecified open wound, right lower leg, subsequent encounter (principal); E11.622 Type 2 diabetes mellitus with other skin ulcer; I83.212 Varicose veins of right lower extremity with both ulcer of calf and inflammation; L97.213 Non-pressure chronic ulcer of right calf with necrosis of muscle; L03.115 Cellulitis of right lower limb; E03.9 Hypothyroidism, unspecified; I10 Essential (primary) hypertension; Z98.42 Cataract extraction status, left eye; Z85.3 Personal history of malignant neoplasm of breast; X58.XXXD Exposure to other specified factors, subsequent encounter ==

== ENCOUNTER → 2023-03-15 | Outpatient (CLI) | payer MEDICARE | END | disposition home or self-care (01) | LOC: WOUNDCARE 01-23 02:05 | PROVIDERS: ATTEND Nurse Practitioner Family | DX: S81.801D Unspecified open wound, right lower leg, subsequent encounter (principal); E11.622 Type 2 diabetes mellitus with other skin ulcer; I83.212 Varicose veins of right lower extremity with both ulcer of calf and inflammation; L97.213 Non-pressure chronic ulcer of right calf with necrosis of muscle; L03.115 Cellulitis of right lower limb; I10 Essential (primary) hypertension; E03.9 Hypothyroidism, unspecified; Z98.42 Cataract extraction status, left eye; Z85.3 Personal history of malignant neoplasm of breast; X58.XXXD Exposure to other specified factors, subsequent encounter ==

== ENCOUNTER → 2023-03-22 | Outpatient (CLI) | payer MEDICARE | END | disposition home or self-care (01) | LOC: WOUNDCARE 01:23 | PROVIDERS: ATTEND Nurse Practitioner Family | DX: S81.801D Unspecified open wound, right lower leg, subsequent encounter (principal); E11.622 Type 2 diabetes mellitus with other skin ulcer; I83.212 Varicose veins of right lower extremity with both ulcer of calf and inflammation; L97.213 Non-pressure chronic ulcer of right calf with necrosis of muscle; L03.115 Cellulitis of right lower limb; E03.9 Hypothyroidism, unspecified; I10 Essential (primary) hypertension; Z98.42 Cataract extraction status, left eye; Z85.3 Personal history of malignant neoplasm of breast; X58.XXXD Exposure to other specified factors, subsequent encounter ==

== ENCOUNTER → 2023-03-28 | Outpatient (CLI) | payer MEDICARE | LOC: WOUNDCARE 00:42 | PROVIDERS: ATTEND Nurse Practitioner Family | DX: S81.801D Unspecified open wound, right lower leg, subsequent encounter (principal); E11.622 Type 2 diabetes mellitus with other skin ulcer; I83.212 Varicose veins of right lower extremity with both ulcer of calf and inflammation; L97.213 Non-pressure chronic ulcer of right calf with necrosis of muscle; L03.115 Cellulitis of right lower limb; E03.9 Hypothyroidism, unspecified; I10 Essential (primary) hypertension; Z98.42 Cataract extraction status, left eye; Z85.3 Personal history of malignant neoplasm of breast; X58.XXXD Exposure to other specified factors, subsequent encounter ==

== ENCOUNTER → 2023-04-03 | Outpatient (CLI) | payer MEDICARE | END | disposition home or self-care (01) | LOC: WOUNDCARE 04:14 | PROVIDERS: ATTEND Nurse Practitioner Family | DX: S81.801D Unspecified open wound, right lower leg, subsequent encounter (principal); E11.622 Type 2 diabetes mellitus with other skin ulcer; I83.212 Varicose veins of right lower extremity with both ulcer of calf and inflammation; L97.213 Non-pressure chronic ulcer of right calf with necrosis of muscle; L03.115 Cellulitis of right lower limb; I10 Essential (primary) hypertension; E03.9 Hypothyroidism, unspecified; Z98.42 Cataract extraction status, left eye; Z85.3 Personal history of malignant neoplasm of breast; X58.XXXD Exposure to other specified factors, subsequent encounter ==

== ENCOUNTER → 2023-04-11 | Outpatient (CLI) | payer MEDICARE | END | disposition home or self-care (01) | LOC: WOUNDCARE 04:40 | PROVIDERS: ATTEND Nurse Practitioner Family | DX: I83.212 Varicose veins of right lower extremity with both ulcer of calf and inflammation (principal); E11.622 Type 2 diabetes mellitus with other skin ulcer; L97.213 Non-pressure chronic ulcer of right calf with necrosis of muscle; L03.115 Cellulitis of right lower limb; E03.9 Hypothyroidism, unspecified; Z98.42 Cataract extraction status, left eye; Z85.3 Personal history of malignant neoplasm of breast ==

== ENCOUNTER → 2023-04-18 | Outpatient (CLI) | payer MEDICARE | END | disposition home or self-care (01) | LOC: WOUNDCARE 03:45 | PROVIDERS: ATTEND Nurse Practitioner Family | DX: I83.212 Varicose veins of right lower extremity with both ulcer of calf and inflammation (principal); E11.622 Type 2 diabetes mellitus with other skin ulcer; L97.213 Non-pressure chronic ulcer of right calf with necrosis of muscle; L03.115 Cellulitis of right lower limb; I10 Essential (primary) hypertension; E03.9 Hypothyroidism, unspecified; Z85.3 Personal history of malignant neoplasm of breast; Z98.49 Cataract extraction status, unspecified eye; Z79.82 Long term (current) use of aspirin; Z79.84 Long term (current) use of oral hypoglycemic drugs; Z79.899 Other long term (current) drug therapy ==

== ENCOUNTER → 2023-05-02 | Outpatient (CLI) | payer MEDICARE | END | disposition home or self-care (01) | LOC: WOUNDCARE 00:20 | PROVIDERS: ATTEND Nurse Practitioner Family | DX: I83.212 Varicose veins of right lower extremity with both ulcer of calf and inflammation (principal); E11.622 Type 2 diabetes mellitus with other skin ulcer; L97.213 Non-pressure chronic ulcer of right calf with necrosis of muscle; L03.115 Cellulitis of right lower limb; I10 Essential (primary) hypertension; E03.9 Hypothyroidism, unspecified; Z98.42 Cataract extraction status, left eye; Z85.3 Personal history of malignant neoplasm of breast ==

== ENCOUNTER → 2023-05-08 | Outpatient (CLI) | payer MEDICARE | END | disposition home or self-care (01) | LOC: WOUNDCARE 01:56 | PROVIDERS: ATTEND Nurse Practitioner Family | DX: I83.212 Varicose veins of right lower extremity with both ulcer of calf and inflammation (principal); E11.622 Type 2 diabetes mellitus with other skin ulcer; L97.213 Non-pressure chronic ulcer of right calf with necrosis of muscle; L03.115 Cellulitis of right lower limb; E03.9 Hypothyroidism, unspecified; Z98.42 Cataract extraction status, left eye; Z85.3 Personal history of malignant neoplasm of breast ==

== ENCOUNTER → 2023-05-16 | Outpatient (CLI) | payer MEDICARE | END | disposition home or self-care (01) | LOC: WOUNDCARE 00:32 | PROVIDERS: ATTEND Nurse Practitioner Family | DX: I83.212 Varicose veins of right lower extremity with both ulcer of calf and inflammation (principal); E11.622 Type 2 diabetes mellitus with other skin ulcer; L97.213 Non-pressure chronic ulcer of right calf with necrosis of muscle; L03.115 Cellulitis of right lower limb; I10 Essential (primary) hypertension; E03.9 Hypothyroidism, unspecified; Z98.42 Cataract extraction status, left eye; Z85.3 Personal history of malignant neoplasm of breast ==

== ENCOUNTER → 2023-05-23 | Outpatient (CLI) | payer MEDICARE | END | disposition home or self-care (01) | LOC: WOUNDCARE 00:47 | PROVIDERS: ATTEND Nurse Practitioner Family | DX: I83.212 Varicose veins of right lower extremity with both ulcer of calf and inflammation (principal); E11.622 Type 2 diabetes mellitus with other skin ulcer; L97.213 Non-pressure chronic ulcer of right calf with necrosis of muscle; L03.115 Cellulitis of right lower limb; E03.9 Hypothyroidism, unspecified; I10 Essential (primary) hypertension; Z98.42 Cataract extraction status, left eye; Z85.3 Personal history of malignant neoplasm of breast ==

== ENCOUNTER → 2023-05-30 | Outpatient (CLI) | payer MEDICARE | END | disposition home or self-care (01) | LOC: WOUNDCARE 00:34 | PROVIDERS: ATTEND Nurse Practitioner Family | DX: I83.212 Varicose veins of right lower extremity with both ulcer of calf and inflammation (principal); E11.622 Type 2 diabetes mellitus with other skin ulcer; L97.213 Non-pressure chronic ulcer of right calf with necrosis of muscle; L03.115 Cellulitis of right lower limb; I10 Essential (primary) hypertension; E03.9 Hypothyroidism, unspecified; Z98.42 Cataract extraction status, left eye; Z85.3 Personal history of malignant neoplasm of breast ==

== ENCOUNTER → 2023-06-06 | Outpatient (CLI) | payer MEDICARE | END | disposition home or self-care (01) | LOC: WOUNDCARE 01:23 | PROVIDERS: ATTEND Nurse Practitioner Family | DX: I83.212 Varicose veins of right lower extremity with both ulcer of calf and inflammation (principal); E11.622 Type 2 diabetes mellitus with other skin ulcer; L97.213 Non-pressure chronic ulcer of right calf with necrosis of muscle; L03.115 Cellulitis of right lower limb; E03.9 Hypothyroidism, unspecified; I10 Essential (primary) hypertension; Z98.42 Cataract extraction status, left eye; Z85.3 Personal history of malignant neoplasm of breast ==

== ENCOUNTER → 2023-06-13 | Outpatient (CLI) | payer MEDICARE | END | disposition home or self-care (01) | LOC: WOUNDCARE 00:50 | PROVIDERS: ATTEND Nurse Practitioner Family | DX: I83.212 Varicose veins of right lower extremity with both ulcer of calf and inflammation (principal); E11.622 Type 2 diabetes mellitus with other skin ulcer; L97.213 Non-pressure chronic ulcer of right calf with necrosis of muscle; L03.115 Cellulitis of right lower limb; E03.9 Hypothyroidism, unspecified; I10 Essential (primary) hypertension; Z98.42 Cataract extraction status, left eye; Z85.3 Personal history of malignant neoplasm of breast ==

== ENCOUNTER → 2023-06-20 | Outpatient (CLI) | payer MEDICARE | END | disposition home or self-care (01) | LOC: WOUNDCARE 02:18 | PROVIDERS: ATTEND Nurse Practitioner Family | DX: I83.212 Varicose veins of right lower extremity with both ulcer of calf and inflammation (principal); E11.622 Type 2 diabetes mellitus with other skin ulcer; L97.213 Non-pressure chronic ulcer of right calf with necrosis of muscle; L03.115 Cellulitis of right lower limb; B35.1 Tinea unguium; E03.9 Hypothyroidism, unspecified; Z98.42 Cataract extraction status, left eye; Z85.3 Personal history of malignant neoplasm of breast ==

== ENCOUNTER → 2023-06-27 | Outpatient (CLI) | payer MEDICARE | END | disposition home or self-care (01) | LOC: WOUNDCARE 01:39 | PROVIDERS: ATTEND Nurse Practitioner Family | DX: I83.212 Varicose veins of right lower extremity with both ulcer of calf and inflammation (principal); E11.622 Type 2 diabetes mellitus with other skin ulcer; L97.213 Non-pressure chronic ulcer of right calf with necrosis of muscle; L03.115 Cellulitis of right lower limb; I10 Essential (primary) hypertension; E03.9 Hypothyroidism, unspecified; Z85.3 Personal history of malignant neoplasm of breast; Z98.42 Cataract extraction status, left eye; Z79.84 Long term (current) use of oral hypoglycemic drugs; Z79.82 Long term (current) use of aspirin ==

== ENCOUNTER → 2023-07-04 | Outpatient (CLI) | payer MEDICARE | END | disposition home or self-care (01) | LOC: WOUNDCARE 05:45 | PROVIDERS: ATTEND Nurse Practitioner Family | DX: I83.212 Varicose veins of right lower extremity with both ulcer of calf and inflammation (principal); L97.213 Non-pressure chronic ulcer of right calf with necrosis of muscle; L03.115 Cellulitis of right lower limb; E03.9 Hypothyroidism, unspecified; I10 Essential (primary) hypertension; Z98.42 Cataract extraction status, left eye; Z85.3 Personal history of malignant neoplasm of breast ==

== ENCOUNTER → 2023-07-11 | Outpatient (CLI) | payer MEDICARE | END | disposition home or self-care (01) | LOC: WOUNDCARE 01:41 | PROVIDERS: ATTEND Nurse Practitioner Family | DX: I83.212 Varicose veins of right lower extremity with both ulcer of calf and inflammation (principal); L97.213 Non-pressure chronic ulcer of right calf with necrosis of muscle; L03.115 Cellulitis of right lower limb; I10 Essential (primary) hypertension; E03.9 Hypothyroidism, unspecified; Z85.3 Personal history of malignant neoplasm of breast; Z98.49 Cataract extraction status, unspecified eye; Z79.82 Long term (current) use of aspirin; Z79.84 Long term (current) use of oral hypoglycemic drugs ==

== ENCOUNTER → 2023-07-25 | Outpatient (CLI) | payer MEDICARE | END | disposition home or self-care (01) | LOC: WOUNDCARE 04:37 | PROVIDERS: ATTEND Nurse Practitioner Family | DX: I83.212 Varicose veins of right lower extremity with both ulcer of calf and inflammation (principal); L97.213 Non-pressure chronic ulcer of right calf with necrosis of muscle; L03.115 Cellulitis of right lower limb; E03.9 Hypothyroidism, unspecified; Z85.3 Personal history of malignant neoplasm of breast; Z98.42 Cataract extraction status, left eye; Z79.84 Long term (current) use of oral hypoglycemic drugs; Z79.82 Long term (current) use of aspirin ==

== ENCOUNTER → 2023-08-01 | Outpatient (CLI) | payer MEDICARE | END | disposition home or self-care (01) | LOC: WOUNDCARE 01:26 | PROVIDERS: ATTEND Nurse Practitioner Family | DX: E11.622 Type 2 diabetes mellitus with other skin ulcer (principal); I83.212 Varicose veins of right lower extremity with both ulcer of calf and inflammation; L97.213 Non-pressure chronic ulcer of right calf with necrosis of muscle; I83.218 Varicose veins of right lower extremity with both ulcer of other part of lower extremity and inflammation; L97.812 Non-pressure chronic ulcer of other part of right lower leg with fat layer exposed; L03.115 Cellulitis of right lower limb; E03.9 Hypothyroidism, unspecified; I10 Essential (primary) hypertension; Z85.3 Personal history of malignant neoplasm of breast; Z98.42 Cataract extraction status, left eye ==

== ENCOUNTER → 2023-08-08 | Outpatient (CLI) | payer MEDICARE | END | disposition home or self-care (01) | LOC: WOUNDCARE 01:30 | PROVIDERS: ATTEND Nurse Practitioner Family | DX: I83.212 Varicose veins of right lower extremity with both ulcer of calf and inflammation (principal); E11.622 Type 2 diabetes mellitus with other skin ulcer; L97.213 Non-pressure chronic ulcer of right calf with necrosis of muscle; L03.115 Cellulitis of right lower limb; I10 Essential (primary) hypertension; E03.9 Hypothyroidism, unspecified; Z85.3 Personal history of malignant neoplasm of breast; Z79.84 Long term (current) use of oral hypoglycemic drugs; Z98.42 Cataract extraction status, left eye ==

== ENCOUNTER → 2023-08-15 | Outpatient (CLI) | payer MEDICARE | END | disposition home or self-care (01) | LOC: WOUNDCARE 02:16 | PROVIDERS: ATTEND Nurse Practitioner Family | DX: I83.212 Varicose veins of right lower extremity with both ulcer of calf and inflammation (principal); E11.622 Type 2 diabetes mellitus with other skin ulcer; L97.213 Non-pressure chronic ulcer of right calf with necrosis of muscle; L03.115 Cellulitis of right lower limb; I10 Essential (primary) hypertension; E03.9 Hypothyroidism, unspecified; Z98.42 Cataract extraction status, left eye; Z85.3 Personal history of malignant neoplasm of breast ==

== ENCOUNTER → 2023-08-22 | Outpatient (CLI) | payer MEDICARE | END | disposition home or self-care (01) | LOC: WOUNDCARE 01:33 | PROVIDERS: ATTEND Nurse Practitioner Family | DX: I83.212 Varicose veins of right lower extremity with both ulcer of calf and inflammation (principal); E11.622 Type 2 diabetes mellitus with other skin ulcer; L97.213 Non-pressure chronic ulcer of right calf with necrosis of muscle; L03.115 Cellulitis of right lower limb; L60.2 Onychogryphosis; B35.1 Tinea unguium; I10 Essential (primary) hypertension; E03.9 Hypothyroidism, unspecified; Z85.3 Personal history of malignant neoplasm of breast; Z98.42 Cataract extraction status, left eye; Z79.84 Long term (current) use of oral hypoglycemic drugs; Z79.82 Long term (current) use of aspirin ==

== ENCOUNTER → 2023-09-05 | Outpatient (CLI) | payer MEDICARE | END | disposition home or self-care (01) | LOC: WOUNDCARE 01:50 | PROVIDERS: ATTEND Nurse Practitioner Family | DX: I83.218 Varicose veins of right lower extremity with both ulcer of other part of lower extremity and inflammation (principal); E11.622 Type 2 diabetes mellitus with other skin ulcer; L97.812 Non-pressure chronic ulcer of other part of right lower leg with fat layer exposed; I83.212 Varicose veins of right lower extremity with both ulcer of calf and inflammation; L97.213 Non-pressure chronic ulcer of right calf with necrosis of muscle; L03.115 Cellulitis of right lower limb; B35.1 Tinea unguium; L60.2 Onychogryphosis; C50.919 Malignant neoplasm of unspecified site of unspecified female breast; I10 Essential (primary) hypertension; E03.9 Hypothyroidism, unspecified; Z79.82 Long term (current) use of aspirin; Z79.84 Long term (current) use of oral hypoglycemic drugs; Z79.899 Other long term (current) drug therapy ==

== ENCOUNTER → 2023-09-12 | Outpatient (CLI) | payer MEDICARE | END | disposition home or self-care (01) | LOC: WOUNDCARE 01:16 | PROVIDERS: ATTEND Nurse Practitioner Family | DX: I83.218 Varicose veins of right lower extremity with both ulcer of other part of lower extremity and inflammation (principal); E11.622 Type 2 diabetes mellitus with other skin ulcer; L97.812 Non-pressure chronic ulcer of other part of right lower leg with fat layer exposed; I83.212 Varicose veins of right lower extremity with both ulcer of calf and inflammation; L97.213 Non-pressure chronic ulcer of right calf with necrosis of muscle; L03.115 Cellulitis of right lower limb; B35.1 Tinea unguium; L60.2 Onychogryphosis; I10 Essential (primary) hypertension; E03.9 Hypothyroidism, unspecified; Z85.3 Personal history of malignant neoplasm of breast; Z79.82 Long term (current) use of aspirin; Z79.84 Long term (current) use of oral hypoglycemic drugs; Z79.899 Other long term (current) drug therapy ==

== ENCOUNTER → 2023-09-19 | Outpatient (CLI) | payer MEDICARE | END | disposition home or self-care (01) | LOC: WOUNDCARE 02:07 | PROVIDERS: ATTEND Nurse Practitioner Family | DX: I83.218 Varicose veins of right lower extremity with both ulcer of other part of lower extremity and inflammation (principal); E11.622 Type 2 diabetes mellitus with other skin ulcer; L97.812 Non-pressure chronic ulcer of other part of right lower leg with fat layer exposed; I83.212 Varicose veins of right lower extremity with both ulcer of calf and inflammation; L97.213 Non-pressure chronic ulcer of right calf with necrosis of muscle; L03.115 Cellulitis of right lower limb; B35.1 Tinea unguium; L60.2 Onychogryphosis; I10 Essential (primary) hypertension; E03.9 Hypothyroidism, unspecified; Z85.3 Personal history of malignant neoplasm of breast; Z98.42 Cataract extraction status, left eye; Z98.890 Other specified postprocedural states; Z79.82 Long term (current) use of aspirin; Z79.84 Long term (current) use of oral hypoglycemic drugs; Z79.899 Other long term (current) drug therapy ==

== ENCOUNTER → 2023-09-26 | Outpatient (CLI) | payer MEDICARE | END | disposition home or self-care (01) | LOC: WOUNDCARE 01:41 | PROVIDERS: ATTEND Nurse Practitioner Family | DX: I83.218 Varicose veins of right lower extremity with both ulcer of other part of lower extremity and inflammation (principal); E11.622 Type 2 diabetes mellitus with other skin ulcer; L97.811 Non-pressure chronic ulcer of other part of right lower leg limited to breakdown of skin; I83.212 Varicose veins of right lower extremity with both ulcer of calf and inflammation; L97.213 Non-pressure chronic ulcer of right calf with necrosis of muscle; I10 Essential (primary) hypertension; E03.9 Hypothyroidism, unspecified; L03.115 Cellulitis of right lower limb; L60.2 Onychogryphosis; B35.1 Tinea unguium; Z85.3 Personal history of malignant neoplasm of breast; Z98.42 Cataract extraction status, left eye; Z79.4 Long term (current) use of insulin; Z79.82 Long term (current) use of aspirin; Z79.899 Other long term (current) drug therapy ==

== ENCOUNTER → 2023-10-03 | Outpatient (CLI) | payer MEDICARE | END | disposition home or self-care (01) | LOC: WOUNDCARE 03:04 | PROVIDERS: ATTEND Nurse Practitioner Family | DX: I83.218 Varicose veins of right lower extremity with both ulcer of other part of lower extremity and inflammation (principal); E11.622 Type 2 diabetes mellitus with other skin ulcer; L97.812 Non-pressure chronic ulcer of other part of right lower leg with fat layer exposed; I83.212 Varicose veins of right lower extremity with both ulcer of calf and inflammation; L97.213 Non-pressure chronic ulcer of right calf with necrosis of muscle; I10 Essential (primary) hypertension; E03.9 Hypothyroidism, unspecified; L03.115 Cellulitis of right lower limb; L60.2 Onychogryphosis; B35.1 Tinea unguium; Z85.3 Personal history of malignant neoplasm of breast; Z98.42 Cataract extraction status, left eye; Z79.4 Long term (current) use of insulin; Z79.82 Long term (current) use of aspirin; Z79.899 Other long term (current) drug therapy ==

== ENCOUNTER → 2023-10-10 | Outpatient (CLI) | payer MEDICARE | END | disposition home or self-care (01) | LOC: WOUNDCARE 00:28 | PROVIDERS: ATTEND Nurse Practitioner Family | DX: I83.218 Varicose veins of right lower extremity with both ulcer of other part of lower extremity and inflammation (principal); E11.622 Type 2 diabetes mellitus with other skin ulcer; L97.812 Non-pressure chronic ulcer of other part of right lower leg with fat layer exposed; I83.212 Varicose veins of right lower extremity with both ulcer of calf and inflammation; L97.213 Non-pressure chronic ulcer of right calf with necrosis of muscle; I10 Essential (primary) hypertension; E03.9 Hypothyroidism, unspecified; L03.115 Cellulitis of right lower limb; L60.2 Onychogryphosis; B35.1 Tinea unguium; Z85.3 Personal history of malignant neoplasm of breast; Z98.42 Cataract extraction status, left eye; Z79.82 Long term (current) use of aspirin; Z79.84 Long term (current) use of oral hypoglycemic drugs; Z79.899 Other long term (current) drug therapy ==

== ENCOUNTER → 2023-10-17 | Outpatient (CLI) | payer MEDICARE | END | disposition home or self-care (01) | LOC: WOUNDCARE 01:31 | PROVIDERS: ATTEND Nurse Practitioner Family | DX: I83.218 Varicose veins of right lower extremity with both ulcer of other part of lower extremity and inflammation (principal); E11.622 Type 2 diabetes mellitus with other skin ulcer; L97.812 Non-pressure chronic ulcer of other part of right lower leg with fat layer exposed; I83.212 Varicose veins of right lower extremity with both ulcer of calf and inflammation; L97.213 Non-pressure chronic ulcer of right calf with necrosis of muscle; L03.115 Cellulitis of right lower limb; I10 Essential (primary) hypertension; E03.9 Hypothyroidism, unspecified; L60.2 Onychogryphosis; B35.1 Tinea unguium; Z85.3 Personal history of malignant neoplasm of breast; Z98.42 Cataract extraction status, left eye; Z79.82 Long term (current) use of aspirin; Z79.84 Long term (current) use of oral hypoglycemic drugs; Z79.899 Other long term (current) drug therapy ==

== ENCOUNTER → 2023-10-24 | Outpatient (CLI) | payer MEDICARE | END | disposition home or self-care (01) | LOC: WOUNDCARE 00:42 | PROVIDERS: ATTEND Nurse Practitioner Family | DX: I83.218 Varicose veins of right lower extremity with both ulcer of other part of lower extremity and inflammation (principal); E11.622 Type 2 diabetes mellitus with other skin ulcer; L97.812 Non-pressure chronic ulcer of other part of right lower leg with fat layer exposed; I83.212 Varicose veins of right lower extremity with both ulcer of calf and inflammation; L97.213 Non-pressure chronic ulcer of right calf with necrosis of muscle; L03.115 Cellulitis of right lower limb; I10 Essential (primary) hypertension; I87.8 Other specified disorders of veins; E03.9 Hypothyroidism, unspecified; L60.2 Onychogryphosis; B35.1 Tinea unguium; Z85.3 Personal history of malignant neoplasm of breast; Z98.42 Cataract extraction status, left eye; Z79.82 Long term (current) use of aspirin; Z79.84 Long term (current) use of oral hypoglycemic drugs; Z79.899 Other long term (current) drug therapy ==

== ENCOUNTER → 2023-11-07 | Outpatient (CLI) | payer MEDICARE | END | disposition home or self-care (01) | LOC: WOUNDCARE 00:55 | PROVIDERS: ATTEND Nurse Practitioner Family | DX: I83.218 Varicose veins of right lower extremity with both ulcer of other part of lower extremity and inflammation (principal); E11.622 Type 2 diabetes mellitus with other skin ulcer; L97.812 Non-pressure chronic ulcer of other part of right lower leg with fat layer exposed; I83.212 Varicose veins of right lower extremity with both ulcer of calf and inflammation; L97.213 Non-pressure chronic ulcer of right calf with necrosis of muscle; L03.115 Cellulitis of right lower limb; I10 Essential (primary) hypertension; I87.8 Other specified disorders of veins; E03.9 Hypothyroidism, unspecified; L60.2 Onychogryphosis; B35.1 Tinea unguium; Z85.3 Personal history of malignant neoplasm of breast; Z98.42 Cataract extraction status, left eye; Z79.82 Long term (current) use of aspirin; Z79.84 Long term (current) use of oral hypoglycemic drugs; Z79.899 Other long term (current) drug therapy ==

== ENCOUNTER → 2023-11-14 | Outpatient (CLI) | payer MEDICARE | END | disposition home or self-care (01) | LOC: WOUNDCARE 00:56 | PROVIDERS: ATTEND Nurse Practitioner Family | DX: I83.218 Varicose veins of right lower extremity with both ulcer of other part of lower extremity and inflammation (principal); E11.622 Type 2 diabetes mellitus with other skin ulcer; L97.812 Non-pressure chronic ulcer of other part of right lower leg with fat layer exposed; I83.212 Varicose veins of right lower extremity with both ulcer of calf and inflammation; L97.213 Non-pressure chronic ulcer of right calf with necrosis of muscle; L03.115 Cellulitis of right lower limb; I10 Essential (primary) hypertension; I87.8 Other specified disorders of veins; E03.9 Hypothyroidism, unspecified; L60.2 Onychogryphosis; B35.1 Tinea unguium; Z85.3 Personal history of malignant neoplasm of breast; Z98.42 Cataract extraction status, left eye; Z79.82 Long term (current) use of aspirin; Z79.84 Long term (current) use of oral hypoglycemic drugs; Z79.899 Other long term (current) drug therapy ==

== ENCOUNTER → 2023-11-28 | Outpatient (CLI) | payer MEDICARE | END | disposition home or self-care (01) | LOC: WOUNDCARE 01:11 | PROVIDERS: ATTEND Nurse Practitioner Family | DX: E11.622 Type 2 diabetes mellitus with other skin ulcer (principal); I83.218 Varicose veins of right lower extremity with both ulcer of other part of lower extremity and inflammation; L97.812 Non-pressure chronic ulcer of other part of right lower leg with fat layer exposed; I83.212 Varicose veins of right lower extremity with both ulcer of calf and inflammation; L97.213 Non-pressure chronic ulcer of right calf with necrosis of muscle; L03.115 Cellulitis of right lower limb; I10 Essential (primary) hypertension; I87.8 Other specified disorders of veins; E03.9 Hypothyroidism, unspecified; L60.2 Onychogryphosis; B35.1 Tinea unguium; Z85.3 Personal history of malignant neoplasm of breast; Z98.42 Cataract extraction status, left eye; Z79.82 Long term (current) use of aspirin; Z79.84 Long term (current) use of oral hypoglycemic drugs; Z79.899 Other long term (current) drug therapy ==

== ENCOUNTER → 2023-12-05 | Outpatient (CLI) | payer MEDICARE | END | disposition home or self-care (01) | LOC: WOUNDCARE 01:03 | PROVIDERS: ATTEND Nurse Practitioner Family | DX: E11.622 Type 2 diabetes mellitus with other skin ulcer (principal); I83.218 Varicose veins of right lower extremity with both ulcer of other part of lower extremity and inflammation; L97.812 Non-pressure chronic ulcer of other part of right lower leg with fat layer exposed; I83.212 Varicose veins of right lower extremity with both ulcer of calf and inflammation; L97.213 Non-pressure chronic ulcer of right calf with necrosis of muscle; L03.115 Cellulitis of right lower limb; I10 Essential (primary) hypertension; I87.8 Other specified disorders of veins; E03.9 Hypothyroidism, unspecified; L60.2 Onychogryphosis; B35.1 Tinea unguium; Z85.3 Personal history of malignant neoplasm of breast; Z98.42 Cataract extraction status, left eye; Z79.82 Long term (current) use of aspirin; Z79.84 Long term (current) use of oral hypoglycemic drugs; Z79.899 Other long term (current) drug therapy ==

== ENCOUNTER → 2023-12-12 | Outpatient (CLI) | payer MEDICARE | END | disposition home or self-care (01) | LOC: WOUNDCARE 00:26 | PROVIDERS: ATTEND Nurse Practitioner Family | DX: E11.622 Type 2 diabetes mellitus with other skin ulcer (principal); I83.218 Varicose veins of right lower extremity with both ulcer of other part of lower extremity and inflammation; L97.812 Non-pressure chronic ulcer of other part of right lower leg with fat layer exposed; I83.212 Varicose veins of right lower extremity with both ulcer of calf and inflammation; L97.213 Non-pressure chronic ulcer of right calf with necrosis of muscle; L03.115 Cellulitis of right lower limb; I10 Essential (primary) hypertension; I87.8 Other specified disorders of veins; E03.9 Hypothyroidism, unspecified; L60.2 Onychogryphosis; B35.1 Tinea unguium; Z85.3 Personal history of malignant neoplasm of breast; Z98.42 Cataract extraction status, left eye; Z79.82 Long term (current) use of aspirin; Z79.84 Long term (current) use of oral hypoglycemic drugs; Z79.899 Other long term (current) drug therapy ==

== ENCOUNTER → 2023-12-19 | Outpatient (CLI) | payer MEDICARE | END | disposition home or self-care (01) | LOC: WOUNDCARE 03:04 | PROVIDERS: ATTEND Nurse Practitioner Family | DX: E11.622 Type 2 diabetes mellitus with other skin ulcer (principal); I83.218 Varicose veins of right lower extremity with both ulcer of other part of lower extremity and inflammation; L97.812 Non-pressure chronic ulcer of other part of right lower leg with fat layer exposed; I83.212 Varicose veins of right lower extremity with both ulcer of calf and inflammation; L97.213 Non-pressure chronic ulcer of right calf with necrosis of muscle; L03.115 Cellulitis of right lower limb; I10 Essential (primary) hypertension; I87.8 Other specified disorders of veins; E03.9 Hypothyroidism, unspecified; L60.2 Onychogryphosis; B35.1 Tinea unguium; Z85.3 Personal history of malignant neoplasm of breast; Z98.42 Cataract extraction status, left eye; Z79.82 Long term (current) use of aspirin; Z79.84 Long term (current) use of oral hypoglycemic drugs; Z79.899 Other long term (current) drug therapy ==

== ENCOUNTER → 2023-12-26 | Outpatient (CLI) | payer MEDICARE | END | disposition home or self-care (01) | LOC: WOUNDCARE 08:30 | PROVIDERS: ATTEND Nurse Practitioner Family | DX: E11.622 Type 2 diabetes mellitus with other skin ulcer (principal); I83.218 Varicose veins of right lower extremity with both ulcer of other part of lower extremity and inflammation; L97.812 Non-pressure chronic ulcer of other part of right lower leg with fat layer exposed; I83.212 Varicose veins of right lower extremity with both ulcer of calf and inflammation; L97.213 Non-pressure chronic ulcer of right calf with necrosis of muscle; L03.115 Cellulitis of right lower limb; I10 Essential (primary) hypertension; I87.8 Other specified disorders of veins; E03.9 Hypothyroidism, unspecified; L60.2 Onychogryphosis; B35.1 Tinea unguium; Z85.3 Personal history of malignant neoplasm of breast; Z98.49 Cataract extraction status, unspecified eye; Z79.82 Long term (current) use of aspirin; Z79.84 Long term (current) use of oral hypoglycemic drugs; Z79.899 Other long term (current) drug therapy ==

== ENCOUNTER → 2024-01-02 | Outpatient (CLI) | payer MEDICARE | END | disposition home or self-care (01) | LOC: WOUNDCARE 01:44 | PROVIDERS: ATTEND Nurse Practitioner Family | DX: E11.622 Type 2 diabetes mellitus with other skin ulcer (principal); I83.218 Varicose veins of right lower extremity with both ulcer of other part of lower extremity and inflammation; L97.812 Non-pressure chronic ulcer of other part of right lower leg with fat layer exposed; I83.212 Varicose veins of right lower extremity with both ulcer of calf and inflammation; L97.213 Non-pressure chronic ulcer of right calf with necrosis of muscle; L03.115 Cellulitis of right lower limb; I10 Essential (primary) hypertension; I87.8 Other specified disorders of veins; E03.9 Hypothyroidism, unspecified; L60.2 Onychogryphosis; B35.1 Tinea unguium; Z85.3 Personal history of malignant neoplasm of breast; Z98.49 Cataract extraction status, unspecified eye; Z79.82 Long term (current) use of aspirin; Z79.84 Long term (current) use of oral hypoglycemic drugs; Z79.899 Other long term (current) drug therapy ==

== ENCOUNTER → 2024-01-09 | Outpatient (CLI) | payer MEDICARE | END | disposition home or self-care (01) | LOC: WOUNDCARE 02:45 | PROVIDERS: ATTEND Nurse Practitioner Family | DX: E11.622 Type 2 diabetes mellitus with other skin ulcer (principal); I83.218 Varicose veins of right lower extremity with both ulcer of other part of lower extremity and inflammation; L97.812 Non-pressure chronic ulcer of other part of right lower leg with fat layer exposed; I83.212 Varicose veins of right lower extremity with both ulcer of calf and inflammation; L97.213 Non-pressure chronic ulcer of right calf with necrosis of muscle; L03.115 Cellulitis of right lower limb; I10 Essential (primary) hypertension; I87.8 Other specified disorders of veins; E03.9 Hypothyroidism, unspecified; L60.2 Onychogryphosis; B35.1 Tinea unguium; Z85.3 Personal history of malignant neoplasm of breast; Z98.49 Cataract extraction status, unspecified eye; Z79.82 Long term (current) use of aspirin; Z79.84 Long term (current) use of oral hypoglycemic drugs; Z79.899 Other long term (current) drug therapy ==

== ENCOUNTER → 2024-01-16 | Outpatient (CLI) | payer MEDICARE | END | disposition home or self-care (01) | LOC: WOUNDCARE 09:32 | PROVIDERS: ATTEND Nurse Practitioner Family | DX: E11.622 Type 2 diabetes mellitus with other skin ulcer (principal); I83.218 Varicose veins of right lower extremity with both ulcer of other part of lower extremity and inflammation; L97.812 Non-pressure chronic ulcer of other part of right lower leg with fat layer exposed; I83.212 Varicose veins of right lower extremity with both ulcer of calf and inflammation; L97.213 Non-pressure chronic ulcer of right calf with necrosis of muscle; L03.115 Cellulitis of right lower limb; I10 Essential (primary) hypertension; I87.8 Other specified disorders of veins; E03.9 Hypothyroidism, unspecified; L60.2 Onychogryphosis; B35.1 Tinea unguium; Z85.3 Personal history of malignant neoplasm of breast; Z98.49 Cataract extraction status, unspecified eye; Z79.82 Long term (current) use of aspirin; Z79.84 Long term (current) use of oral hypoglycemic drugs; Z79.899 Other long term (current) drug therapy ==

== ENCOUNTER → 2024-01-23 | Outpatient (CLI) | payer MEDICARE | END | disposition home or self-care (01) | LOC: WOUNDCARE 00:03 | PROVIDERS: ATTEND Nurse Practitioner Family | DX: E11.622 Type 2 diabetes mellitus with other skin ulcer (principal); I83.218 Varicose veins of right lower extremity with both ulcer of other part of lower extremity and inflammation; L97.812 Non-pressure chronic ulcer of other part of right lower leg with fat layer exposed; I83.212 Varicose veins of right lower extremity with both ulcer of calf and inflammation; L97.213 Non-pressure chronic ulcer of right calf with necrosis of muscle; L03.115 Cellulitis of right lower limb; I10 Essential (primary) hypertension; I87.8 Other specified disorders of veins; E03.9 Hypothyroidism, unspecified; L60.2 Onychogryphosis; B35.1 Tinea unguium; Z85.3 Personal history of malignant neoplasm of breast; Z98.49 Cataract extraction status, unspecified eye; Z79.82 Long term (current) use of aspirin; Z79.84 Long term (current) use of oral hypoglycemic drugs; Z79.899 Other long term (current) drug therapy ==

== ENCOUNTER → 2024-02-06 | Outpatient (CLI) | payer MEDICARE | END | disposition home or self-care (01) | LOC: WOUNDCARE 01:49 | PROVIDERS: ATTEND Nurse Practitioner Family | DX: E11.622 Type 2 diabetes mellitus with other skin ulcer (principal); I83.218 Varicose veins of right lower extremity with both ulcer of other part of lower extremity and inflammation; L97.812 Non-pressure chronic ulcer of other part of right lower leg with fat layer exposed; I83.212 Varicose veins of right lower extremity with both ulcer of calf and inflammation; L97.213 Non-pressure chronic ulcer of right calf with necrosis of muscle; L03.115 Cellulitis of right lower limb; I10 Essential (primary) hypertension; I87.8 Other specified disorders of veins; E03.9 Hypothyroidism, unspecified; L60.2 Onychogryphosis; B35.1 Tinea unguium; Z85.3 Personal history of malignant neoplasm of breast; Z98.49 Cataract extraction status, unspecified eye; Z79.82 Long term (current) use of aspirin; Z79.84 Long term (current) use of oral hypoglycemic drugs; Z79.899 Other long term (current) drug therapy ==

== ENCOUNTER → 2024-02-13 | Outpatient (CLI) | payer MEDICARE ==
[~2024-02-13] MED LIST changes: +DALVANCE500 MG IV; +LEVOTHYROXINE150 MCG PO
== END | disposition home or self-care (01) ==
LOC: WOUNDCARE 02:00
PROVIDERS: ATTEND Nurse Practitioner Family
DX: I83.212 Varicose veins of right lower extremity with both ulcer of calf and inflammation (principal); E11.622 Type 2 diabetes mellitus with other skin ulcer; L97.213 Non-pressure chronic ulcer of right calf with necrosis of muscle; L03.115 Cellulitis of right lower limb; L60.2 Onychogryphosis; I10 Essential (primary) hypertension; B35.1 Tinea unguium; E03.9 Hypothyroidism, unspecified; Z85.3 Personal history of malignant neoplasm of breast; Z98.42 Cataract extraction status, left eye

== ENCOUNTER → 2024-02-20 | Outpatient (CLI) | payer MEDICARE ==
[~2024-02-20] MED LIST changes: +LINEZOLID600 MG PO; +NATURE'S BLEND F1 MG PO
== END | disposition home or self-care (01) ==
LOC: WOUNDCARE 01:24
PROVIDERS: ATTEND Nurse Practitioner Family
DX: E11.622 Type 2 diabetes mellitus with other skin ulcer (principal); I83.218 Varicose veins of right lower extremity with both ulcer of other part of lower extremity and inflammation; L97.812 Non-pressure chronic ulcer of other part of right lower leg with fat layer exposed; I83.212 Varicose veins of right lower extremity with both ulcer of calf and inflammation; L97.213 Non-pressure chronic ulcer of right calf with necrosis of muscle; L03.115 Cellulitis of right lower limb; I10 Essential (primary) hypertension; I87.8 Other specified disorders of veins; E03.9 Hypothyroidism, unspecified; L60.2 Onychogryphosis; B35.1 Tinea unguium; Z85.3 Personal history of malignant neoplasm of breast; Z98.49 Cataract extraction status, unspecified eye; Z79.82 Long term (current) use of aspirin; Z79.84 Long term (current) use of oral hypoglycemic drugs; Z79.899 Other long term (current) drug therapy

== ENCOUNTER → 2024-03-05 | Outpatient (CLI) | payer MEDICARE | END | disposition home or self-care (01) | LOC: WOUNDCARE 02:12 | PROVIDERS: ATTEND Nurse Practitioner Family | DX: E11.622 Type 2 diabetes mellitus with other skin ulcer (principal); I83.218 Varicose veins of right lower extremity with both ulcer of other part of lower extremity and inflammation; L97.812 Non-pressure chronic ulcer of other part of right lower leg with fat layer exposed; I83.212 Varicose veins of right lower extremity with both ulcer of calf and inflammation; L97.213 Non-pressure chronic ulcer of right calf with necrosis of muscle; L03.115 Cellulitis of right lower limb; I10 Essential (primary) hypertension; I87.8 Other specified disorders of veins; E03.9 Hypothyroidism, unspecified; L60.2 Onychogryphosis; B35.1 Tinea unguium; Z85.3 Personal history of malignant neoplasm of breast; Z98.49 Cataract extraction status, unspecified eye; Z79.82 Long term (current) use of aspirin; Z79.84 Long term (current) use of oral hypoglycemic drugs; Z79.899 Other long term (current) drug therapy ==

== ENCOUNTER → 2024-03-12 | Outpatient (CLI) | payer MEDICARE | END | disposition home or self-care (01) | LOC: WOUNDCARE 01:41 | PROVIDERS: ATTEND Nurse Practitioner Family | DX: E11.622 Type 2 diabetes mellitus with other skin ulcer (principal); I83.218 Varicose veins of right lower extremity with both ulcer of other part of lower extremity and inflammation; L97.812 Non-pressure chronic ulcer of other part of right lower leg with fat layer exposed; I83.212 Varicose veins of right lower extremity with both ulcer of calf and inflammation; L97.213 Non-pressure chronic ulcer of right calf with necrosis of muscle; L03.115 Cellulitis of right lower limb; I10 Essential (primary) hypertension; I87.8 Other specified disorders of veins; E03.9 Hypothyroidism, unspecified; L60.2 Onychogryphosis; B35.1 Tinea unguium; Z85.3 Personal history of malignant neoplasm of breast; Z98.49 Cataract extraction status, unspecified eye; Z79.82 Long term (current) use of aspirin; Z79.84 Long term (current) use of oral hypoglycemic drugs; Z79.899 Other long term (current) drug therapy ==

== ENCOUNTER → 2024-03-19 | Outpatient (CLI) | payer MEDICARE | END | disposition home or self-care (01) | LOC: WOUNDCARE 01:35 | PROVIDERS: ATTEND Nurse Practitioner Family | DX: E11.622 Type 2 diabetes mellitus with other skin ulcer (principal); I83.218 Varicose veins of right lower extremity with both ulcer of other part of lower extremity and inflammation; L97.812 Non-pressure chronic ulcer of other part of right lower leg with fat layer exposed; I83.212 Varicose veins of right lower extremity with both ulcer of calf and inflammation; L97.213 Non-pressure chronic ulcer of right calf with necrosis of muscle; L03.115 Cellulitis of right lower limb; I10 Essential (primary) hypertension; I87.8 Other specified disorders of veins; E03.9 Hypothyroidism, unspecified; L60.2 Onychogryphosis; B35.1 Tinea unguium; Z85.3 Personal history of malignant neoplasm of breast; Z98.49 Cataract extraction status, unspecified eye; Z79.82 Long term (current) use of aspirin; Z79.84 Long term (current) use of oral hypoglycemic drugs; Z79.899 Other long term (current) drug therapy ==

== ENCOUNTER → 2024-03-26 | Outpatient (CLI) | payer MEDICARE ==
[2024-03-26 10:00] LABS: BASO % 1.1 % (0.0-1.0); EOS # 0.2 10*3/uL (0.0-0.4); EOS % 5.3 % (1.0-4.0); HEMATOCRIT 27.3 % (37.0-47.0); LYMPH % 25.4 % (27.0-41.0); MEAN CELL VOLUME 104.2 fl (81.0-99.0); MEAN CORPUSCULAR HGB 31.7 pg (27.0-31.0); MEAN CORPUSCULAR HGB CONC 30.4 g/dl (33.0-37.0); MEAN PLATELET VOLUME 10.1 fl (9.6-12.3); MONO # 0.3 10*3/uL (0.1-1.0); MONO % 7.2 % (3.0-9.0); NEUT # 2.3 10*3/uL (2.3-7.9); NEUT % 60.5 % (47.0-73.0); PLATELET COUNT AUTOMATED 413 10*3/uL (130-400); RED BLOOD COUNT 2.62 10*6/uL (4.10-5.10); RED CELL DISTRI WIDTH 17.3 % (0-14.5); WHITE BLOOD COUNT 3.7 10*3/uL (4.8-10.8)
[2024-03-26 10:17] LABS: ALKALINE PHOSPHATASE 103 U/L (46-116); BUN 19 mg/dl (9-23); CHLORIDE 105 mmol/L (98-107); POTASSIUM 4.1 mmol/L (3.4-5.1); TOTAL PROTEIN 6.9 gm/dL (6.0-8.0)
[2024-03-26 10:28] LABS: SGPT/ALT < 7 U/L (5-49)
== END | disposition home or self-care (01) ==
LOC: WOUNDCARE 00:37 → LAB 00:37 → WOUNDCARE 03:15
PROVIDERS: ATTEND Nurse Practitioner Family
DX: E11.622 Type 2 diabetes mellitus with other skin ulcer (principal); I83.212 Varicose veins of right lower extremity with both ulcer of calf and inflammation; L97.213 Non-pressure chronic ulcer of right calf with necrosis of muscle; L03.115 Cellulitis of right lower limb; B35.1 Tinea unguium; L60.2 Onychogryphosis; E03.9 Hypothyroidism, unspecified; I10 Essential (primary) hypertension; Z98.42 Cataract extraction status, left eye; Z85.3 Personal history of malignant neoplasm of breast

== ENCOUNTER → 2024-04-04 | Outpatient (CLI) | payer MEDICARE | END | disposition home or self-care (01) | LOC: US 14:25 | PROVIDERS: ATTEND Nurse Practitioner Family | DX: L97.213 Non-pressure chronic ulcer of right calf with necrosis of muscle (principal); I73.9 Peripheral vascular disease, unspecified ==

== ENCOUNTER → 2024-04-09 | Outpatient (CLI) | payer MEDICARE | END | disposition home or self-care (01) | LOC: WOUNDCARE 02:26 | PROVIDERS: ATTEND Nurse Practitioner Family | DX: I83.212 Varicose veins of right lower extremity with both ulcer of calf and inflammation (principal); L97.213 Non-pressure chronic ulcer of right calf with necrosis of muscle; L03.115 Cellulitis of right lower limb; B35.1 Tinea unguium; L60.2 Onychogryphosis; E03.9 Hypothyroidism, unspecified; I10 Essential (primary) hypertension; Z98.42 Cataract extraction status, left eye; Z85.3 Personal history of malignant neoplasm of breast ==

== ENCOUNTER → 2024-04-16 | Outpatient (CLI) | payer MEDICARE | END | disposition home or self-care (01) | LOC: WOUNDCARE 01:06 | PROVIDERS: ATTEND Nurse Practitioner Family | DX: E11.622 Type 2 diabetes mellitus with other skin ulcer (principal); I83.212 Varicose veins of right lower extremity with both ulcer of calf and inflammation; L97.213 Non-pressure chronic ulcer of right calf with necrosis of muscle; L60.2 Onychogryphosis; L03.115 Cellulitis of right lower limb; B35.1 Tinea unguium; E03.9 Hypothyroidism, unspecified; I10 Essential (primary) hypertension; Z98.42 Cataract extraction status, left eye; Z85.3 Personal history of malignant neoplasm of breast ==

== ENCOUNTER → 2024-04-30 | Outpatient (CLI) | payer MEDICARE | END | disposition home or self-care (01) | LOC: WOUNDCARE 01:17 | PROVIDERS: ATTEND Nurse Practitioner Family | DX: E11.622 Type 2 diabetes mellitus with other skin ulcer (principal); I83.218 Varicose veins of right lower extremity with both ulcer of other part of lower extremity and inflammation; L97.812 Non-pressure chronic ulcer of other part of right lower leg with fat layer exposed; I83.212 Varicose veins of right lower extremity with both ulcer of calf and inflammation; L97.213 Non-pressure chronic ulcer of right calf with necrosis of muscle; L03.115 Cellulitis of right lower limb; I10 Essential (primary) hypertension; I87.8 Other specified disorders of veins; E03.9 Hypothyroidism, unspecified; L60.2 Onychogryphosis; B35.1 Tinea unguium; Z85.3 Personal history of malignant neoplasm of breast; Z98.49 Cataract extraction status, unspecified eye; Z79.82 Long term (current) use of aspirin; Z79.84 Long term (current) use of oral hypoglycemic drugs; Z79.899 Other long term (current) drug therapy ==

== ENCOUNTER → 2024-05-07 | Outpatient (CLI) | payer MEDICARE | END | disposition home or self-care (01) | LOC: WOUNDCARE 01:25 | PROVIDERS: ATTEND Nurse Practitioner Family | DX: E11.622 Type 2 diabetes mellitus with other skin ulcer (principal); I83.218 Varicose veins of right lower extremity with both ulcer of other part of lower extremity and inflammation; L97.812 Non-pressure chronic ulcer of other part of right lower leg with fat layer exposed; I83.212 Varicose veins of right lower extremity with both ulcer of calf and inflammation; L97.213 Non-pressure chronic ulcer of right calf with necrosis of muscle; L03.115 Cellulitis of right lower limb; I10 Essential (primary) hypertension; I87.8 Other specified disorders of veins; E03.9 Hypothyroidism, unspecified; L60.2 Onychogryphosis; B35.1 Tinea unguium; Z85.3 Personal history of malignant neoplasm of breast; Z98.49 Cataract extraction status, unspecified eye; Z79.82 Long term (current) use of aspirin; Z79.84 Long term (current) use of oral hypoglycemic drugs; Z79.899 Other long term (current) drug therapy ==

== ENCOUNTER → 2024-05-14 | Outpatient (CLI) | payer MEDICARE | END | disposition home or self-care (01) | LOC: WOUNDCARE 02:12 | PROVIDERS: ATTEND Nurse Practitioner Family | DX: E11.622 Type 2 diabetes mellitus with other skin ulcer (principal); I83.218 Varicose veins of right lower extremity with both ulcer of other part of lower extremity and inflammation; L97.812 Non-pressure chronic ulcer of other part of right lower leg with fat layer exposed; I83.212 Varicose veins of right lower extremity with both ulcer of calf and inflammation; L97.213 Non-pressure chronic ulcer of right calf with necrosis of muscle; L03.115 Cellulitis of right lower limb; I10 Essential (primary) hypertension; I87.8 Other specified disorders of veins; E03.9 Hypothyroidism, unspecified; L60.2 Onychogryphosis; B35.1 Tinea unguium; Z85.3 Personal history of malignant neoplasm of breast; Z98.49 Cataract extraction status, unspecified eye; Z79.82 Long term (current) use of aspirin; Z79.84 Long term (current) use of oral hypoglycemic drugs; Z79.899 Other long term (current) drug therapy ==

== ENCOUNTER → 2024-05-22 | Outpatient (CLI) | payer MEDICARE | END | disposition home or self-care (01) | LOC: WOUNDCARE 02:17 | PROVIDERS: ATTEND Nurse Practitioner Family | DX: E11.622 Type 2 diabetes mellitus with other skin ulcer (principal); I83.218 Varicose veins of right lower extremity with both ulcer of other part of lower extremity and inflammation; L97.812 Non-pressure chronic ulcer of other part of right lower leg with fat layer exposed; I83.212 Varicose veins of right lower extremity with both ulcer of calf and inflammation; L97.213 Non-pressure chronic ulcer of right calf with necrosis of muscle; L03.115 Cellulitis of right lower limb; I10 Essential (primary) hypertension; I87.8 Other specified disorders of veins; E03.9 Hypothyroidism, unspecified; L60.2 Onychogryphosis; B35.1 Tinea unguium; Z85.3 Personal history of malignant neoplasm of breast; Z98.49 Cataract extraction status, unspecified eye; Z79.82 Long term (current) use of aspirin; Z79.84 Long term (current) use of oral hypoglycemic drugs; Z79.899 Other long term (current) drug therapy ==

== ENCOUNTER → 2024-05-28 | Outpatient (CLI) | payer MEDICARE | END | disposition home or self-care (01) | LOC: WOUNDCARE 00:49 | PROVIDERS: ATTEND Nurse Practitioner Family | DX: E11.622 Type 2 diabetes mellitus with other skin ulcer (principal); I83.218 Varicose veins of right lower extremity with both ulcer of other part of lower extremity and inflammation; L97.812 Non-pressure chronic ulcer of other part of right lower leg with fat layer exposed; I83.212 Varicose veins of right lower extremity with both ulcer of calf and inflammation; L97.213 Non-pressure chronic ulcer of right calf with necrosis of muscle; L03.115 Cellulitis of right lower limb; I10 Essential (primary) hypertension; I87.8 Other specified disorders of veins; E03.9 Hypothyroidism, unspecified; M79.671 Pain in right foot; M79.672 Pain in left foot; L60.2 Onychogryphosis; B35.1 Tinea unguium; Z85.3 Personal history of malignant neoplasm of breast; Z98.49 Cataract extraction status, unspecified eye; Z79.82 Long term (current) use of aspirin; Z79.84 Long term (current) use of oral hypoglycemic drugs; Z79.899 Other long term (current) drug therapy ==